=== PATIENT | male | born 1995 | race Caucasian/White ===

== ENCOUNTER 2018-08-17 13:40 | Inpatient (IN) | payer OTHER ==
[2018-08-17 16:50] VITALS: BMI 27.1
--- NOTE | 2018-08-17 18:07 | HP ---
COWS - Scale Resting Pulse: 1= [place] 81-100 Sweatin=Flushed/Facial Moisture Restless Observation: 1= Difficult to Sit Still Pupil Size: 0= Normal to Room Light Bone or Joint Aches: 4=Acute Joint/Muscle Pain Runny Nose/ Eye Tearin= Runny Nose/Eyes GI Upset > 30mins: 2= Nausea/Diarrhea (diarrhea x 3) Tremor Observation: 2= Slight Tremor Visible Yawning Observation: 1= 1-2x During Session Anxiety or Irritability: 2=Irritable/Anxious Goose Flesh Skin: 0=Smooth Skin COWS Score: 17 CIWA Score Nausea/Vomitin Muscle Tremors: 3 Anxiety: 3 Agitation: 0-Normal Activity Paroxysmal Sweats: 2 Orientation: 0-Oriented Tacttile Disturbances: 1-Very Mild Itch/Numbness Auditory Disturbances: 0-None Visual Disturbances: 0-None Headache: 2-Mild CIWA-Ar Total Score: 14 - Admission Criteria OASAS Guidelines: Admission for Medically Managed Detox: Requires at least one of the followin. CIWA greater than 12 2. Seizures within the past 24 hours 3. Delirium tremens within the past 24 hours 4. Hallucinations within the past 24 hours 5. Acute intervention needed for co occurring medical disorder 6. Acute intervention needed for co occurring psychiatric disorder 7. Severe withdrawal that cannot be handled at a lower level of care (continued vomiting, continued diarrhea, abnormal vital signs) requiring intravenous medication and/or fluids 8. Admission [facility] Chief Complaint: Alcohol withdrawal symptoms Allergies/Adverse Reactions: Allergies Allergy/AdvReac Type Severity Reaction Status Date / Time risperidone [From Risperdal] Allergy Verified 08/17/18 18:01 Ris Allergy Severe Difficulty Uncoded 08/17/18 18:01 Breathing History of Present Illness: 23 years old male with 9 years of alcohol dependence is seeking admission to detox. Patient has been in previous at [facility] and this is his first detox at [facility]. He has medical history of Hypertension, Asthma, Depression and Anxiety. He denies suicide attempt and suicidal ideation at this time. Patient is on methadone 120mg with [facility]. Last day medicated was today. Dose is to be confirmed by the nurse. Exam Limitations: No Limitations - Ebola screening Have you traveled outside of the country in the last 21 days: No (N) Have you had contact with anyone from an Ebola affected area: No Have you been sick,other than usual withdrawal symptoms: No Do you have a fever: No - Review of Systems Constitutional: Chills, Loss of Appetite, Malaise, Changes in sleep EENT: reports: No Symptoms Reported Respiratory: reports: No Symptoms reported Cardiac: reports: No Symptoms Reported GI: reports: Diarrhea (x 3), Nausea, Poor Appetite, Poor Fluid Intake, Abdominal cramping : reports: No Symptoms Reported Musculoskeletal: reports: Back Pain, Joint Pain, Muscle Pain Integumentary: reports: Dryness, Flushing Neuro: reports: Tremors Endocrine: reports: No Symptoms Reported Hematology: reports: No Symptoms Reported Psychiatric: reports: No Sypmtoms Reported, Anxious, Depressed Other Systems: Reviewed and Negative Patient History - Patient Medical History Hx Anemia: No Hx Asthma: Yes (Albuterol) Hx Chronic Obstructive Pulmonary Disease (COPD): No Hx Cancer: No Hx Cardiac Disorders: No Hx Congestive Heart Failure: No Hx Hypertension: Yes (Vasotec) Hx Hypercholesterolemia: No Hx Pacemaker: No HX Cerebrovascular Accident: No Hx Seizures: No Hx Diabetes: No Hx Gastrointestinal Disorders: No Hx Liver Disease: No Hx Genitourinary Disorders: No Hx Sexually Transmitted Disorders: No Hx Renal Disease (ESRD): No Hx Thyroid Disease: No Hx Human Immunodeficiency Virus (HIV): No (Negative 2017) Hx Hepatitis C: No Hx Depression: Yes (Paxil, Seroquel) Hx Suicide Attempt: No (Denies suicidal ideation at this time) Hx Bipolar Disorder: Yes (Seroquel) Hx Schizophrenia: No Other Medical History: Anxiety - Not on medication - Patient Surgical History Past Surgical History: No - PPD History Previous Implant?: Yes Documented Results: Negative w/proof Implanted On Prior R Admission?: No PPD to be Administered?: Yes - Reproductive History Patient is a Female of Child Bearing Age (11 -55 yrs old): No (MALE) - Smoking Cessation Smoking history: Current every day smoker Have you smoked in the past 12 months: No Aproximately how many cigarettes per day: 10 Hx Chewing Tobacco Use: No Initiated information on smoking cessation: Yes 'Breaking Loose' booklet given: 08/17/18 - Substance & Tx. History Hx Alcohol Use: Yes Hx Substance Use: Yes Substance Use Type: Alcohol, Cocaine, Marijuana Hx Substance Use Treatment: Yes ([facility]) - Substances Abused Marijuana/Hashish Route: Smoking Frequency: Daily Amount used: $30 Age of first use: 14 Date of Last Use: 08/17/18 Cocaine Route: Injection Frequency: Daily Amount used: $100 Age of first use: 18 Date of Last Use: 08/16/18 Alcohol Route: Oral Frequency: Daily Amount used: FIREBALL - 1 LITER; BARCARDI - 2 BOTTLES Age of first use: 16 Date of Last Use: 08/16/18 Family Disease History - Family Disease History Family History: Denies Admission Physical Exam [facility] - Vital Signs Vital Signs: Vital Signs - 24 hr 08/17/18 16:43 Temperature 99.1 F Pulse Rate 84 Respiratory 18 Rate Blood Pressure 136/76 - Physical General Appearance: Yes: Moderate Distress HEENTM: Yes: EOMI, Normal ENT Inspection, Normal Voice, CECI Respiratory: Yes: Lungs Clear, Normal Breath Sounds, No Respiratory Distress Neck: Yes: Supple Breast: Yes: Breast Exam Deferred Cardiology: Yes: Regular Rhythm, Regular Rate Abdominal: Yes: Normal Bowel Sounds, Soft Genitourinary: Yes: Within Normal Limits Back: Yes: Normal Inspection Musculoskeletal: Yes: Back pain, Joint Stiffness, Muscle Pain Extremities: Yes: Tremors Neurological: Yes: creative coordinator II-XII NML intact, Alert Integumentary: Yes: Warm Lymphatic: Yes: Within Normal Limits - Diagnostic (1) Alcohol dependence with uncomplicated withdrawal Current Visit: Yes Status: Chronic (2) Hypertension Current Visit: Yes Status: Chronic Qualifiers: Hypertension type: essential hypertension Qualified Code(s): I10 - Essential (primary) hypertension (3) Asthma Current Visit: Yes Status: Chronic Qualifiers: Asthma severity: mild Asthma persistence: intermittent (4) Anxiety Current Visit: Yes Status: Chronic (5) Depression Current Visit: Yes Status: Chronic Qualifiers: Depression Type: unspecified Qualified Code(s): F32.9 - Major depressive disorder, single episode, unspecified Cleared for Admission S - Detox or Rehab [facility] Level of Care: Medically Managed Detox Regimen/Protocol: Valium [facility] Breath Alcohol Content Breath Alcohol Content: 0.093 Urine Drug Screen - Results Drug Screen Negative: No Urine Drug Screen Results: THC-Marijuana, KAJAL-Cocaine, MET-Methamphetamine, BZO- Benzodiazepines, MTD-Methadone
[2018-08-17] MEDS ORDERED: MAG HYDROX/AL HYDROX/SIMETH 30 ML UNIT-DOSE CUP PO PRN (18:20)
[2018-08-17] MEDS ORDERED: diazePAM 5 MG TABLET PO PRN (18:20)
[2018-08-17] MEDS ORDERED: NICOTINE POLACRILEX 2 MG GUM BC PRN (18:20)
[2018-08-17] MEDS ORDERED: MAGNESIUM HYDROX 2400MG/30ML ORAL SUSPENSION 30 ML CUP PO PRN (18:20)
[2018-08-17] MEDS ORDERED: diazePAM 5 MG TABLET PO ONE (18:20)
[2018-08-17] MEDS ORDERED: MENTHOL/PHENOL 1 EACH UD MM PRN (18:20)
[2018-08-17] MEDS ORDERED: ACETAMINOPHEN 325 MG TABLET (FP) PO PRN (18:20)
[2018-08-17] MEDS ORDERED: P-EPHED 60MG/TRIPROLIDI 2.5MG TABLET PO PRN (18:20)
[2018-08-17] MEDS ORDERED: MAGNESIUM CITRATE 300 ML BOTTLE PO PRN (18:20)
[2018-08-17] MEDS ORDERED: guaiFENesin/D-METHORPHAN HB 10 ML UNIT-DOSE CUPS PO PRN (18:20)
[2018-08-17] MEDS ORDERED: LOPERAMIDE HCL 2 MG CAPSULE PO PRN (18:20)
[2018-08-17] MEDS ORDERED: MELATONIN 5 MG TABLETS PO PRN (22:00)
[2018-08-17] MEDS: THIAMINE HCL 100 MG TABLET (FP) PO SCH (22:19)
[2018-08-17] MEDS: diazePAM 5 MG TABLET PO SCH (22:19)
[2018-08-18] MEDS: diazePAM 5 MG TABLET PO SCH ×3 (05:26→22:12)
[2018-08-18] MEDS: IBUPROFEN 400 MG TABLET (FP) PO PRN ×2 (05:26→22:13)
[2018-08-18] MEDS: PRENATAL VITAMINS W/ FOLIC ACID TABLET (FP) PO SCH (10:02)
[2018-08-18] MEDS: NICOTINE 14 MG/24 HOURS TOPICAL PATCH TD SCH (10:02)
[2018-08-18 11:00] LABS: ALBUMIN 3.4 g/dl (3.4-5.0); ALK PHOS 130 U/L (45-117); ANION GAP 8 MMOL/L (8-16); BILIRUBIN,TOTAL 0.2 mg/dL (0.2-1); BLOOD UREA NITROGEN 15 mg/dL (7-18); CALCIUM 8.5 mg/dL (8.5-10.1); CHLORIDE 105 mmol/L (98-107); CO2 26 mmol/L (21-32); CREATININE 0.6 mg/dL (0.55-1.3); GLUCOSE,RANDOM 100 mg/dL (74-106); POTASSIUM 4.3 mmol/L (3.5-5.1); SGOT/AST 51 U/L (15-37); SGPT/ALT 124 U/L (13-61); SODIUM 139 mmol/L (136-145); TOT PROT 7.4 g/dl (6.4-8.2)
[2018-08-18 11:06] LABS: HEMATOCRIT 38.2 % (35.4-49); HEMOGLOBIN 12.1 GM/dL (11.7-16.9); MCH 26.4 pg (25.7-33.7); MCHC 31.7 g/dl (32.0-35.9); MEAN CELL VOLUME 83.1 fl (80-96); MEAN PLT VOLUME 7.8 fl (7.5-11.1); PLATELET COUNT 409 K/MM3 (134-434); RDW 15.6 % (11.9-15.9); WHITE BLOOD COUNT 10.8 K/mm3 (4.0-10.0)
--- NOTE | 2018-08-18 11:45 | PN ---
[facility] CIWA - CIWA Score Nausea/Vomitin Muscle Tremors: 2 Anxiety: 2 Agitation: 2 Paroxysmal Sweats: 3 Orientation: 0-Oriented Tacttile Disturbances: 2-Mild Itch/Numbness/Burn Auditory Disturbances: 0-None Visual Disturbances: 0-None Headache: 0-None Present CIWA-Ar Total Score: 13 S COWS - Scale Resting Pulse: 0= [place] 80 or Below Sweatin=Flushed/Facial Moisture Restless Observation: 1= Difficult to Sit Still Pupil Size: 1= Pupils >than Normal Bone or Joint Aches: 2= Severe Diffuse Aches Runny Nose/ Eye Tearin= Nasal Congestion GI Upset > 30mins: 2= Nausea/Diarrhea Tremor Observation of Outstretched Hands: 1= Tremor [place], Not Seen Yawning Observation: 0= None Anxiety or Irritability: 1=Feels Anxious/Irritable Goose Flesh Skin: 0=Smooth Skin COWS Score: 11 S Progress Note (SOAP) Subjective: interupted sleep, sweats, chills, rt arm pains Objective: 08/18/18 11:43 Vital Signs Temperature 97.9 F 08/18/18 09:25 Pulse Rate 69 08/18/18 09:25 Respiratory Rate 16 08/18/18 09:25 Blood Pressure 131/66 08/18/18 09:25 O2 Sat by Pulse Oximetry (%) Laboratory Tests 08/18/18 08/18/18 08/18/18 07:50 07:50 07:50 WBC 10.8 H RBC 4.60 Hgb 12.1 Hct 38.2 MCV 83.1 MCH 26.4 MCHC 31.7 L RDW 15.6 Plt Count 409 MPV 7.8 Sodium 139 Potassium 4.3 Chloride 105 Carbon Dioxide 26 Anion Gap 8 BUN 15 Creatinine 0.6 Creat Clearance w eGFR > 60 Random Glucose 100 Calcium 8.5 Total Bilirubin 0.2 AST 51 H ALT 124 H Alkaline Phosphatase 130 H Total Protein 7.4 Albumin 3.4 HIV 1&2 Antibody Screen Negative HIV P24 Antigen Negative pt aox3 in nad ambulating Assessment: 08/18/18 11:44 withdrawal sx's otp on methadone elevated alt Plan: cont. detox 'increase fluids motrin prn d/c tylenol repeat sgot/sgpt inr
[2018-08-18] MEDS: THIAMINE HCL 100 MG TABLET (FP) PO SCH (22:12)
[2018-08-19 05:58] VITALS: BP 133/72
[2018-08-19 09:33] VITALS: PULSE 67; TEMP 98.5
[2018-08-19] MEDS ORDERED: METHADONE HCL 40 MG DISPERSABLE TABLET PO ONE (09:50)
[2018-08-19] MEDS ORDERED: diazePAM 5 MG TABLET PO SCH (10:00)
[2018-08-19] MEDS: NICOTINE 14 MG/24 HOURS TOPICAL PATCH TD SCH (10:03)
[2018-08-19] MEDS: PRENATAL VITAMINS W/ FOLIC ACID TABLET (FP) PO SCH (10:03)
[2018-08-19 10:27] LABS: SGOT/AST 46 U/L (15-37); SGPT/ALT 104 U/L (13-61)
[2018-08-19] MEDS ORDERED: PERMETHRIN 5% TOPICAL CREAM 60 GM TUBE TP ONE (11:06)
--- NOTE | 2018-08-19 11:09 | PN ---
S Progress Note Note: pt was found in pt room J,G who was dx with head lice; and was wearing pt hat and touched his clothes, pt was told that now he will need to be treated and instructions were given to pt. pt in agreement.
--- NOTE | 2018-08-19 11:13 | PN ---
[facility] CIWA - CIWA Score Nausea/Vomitin-No Nausea/No Vomiting Muscle Tremors: 3 Anxiety: 3 Agitation: 3 Paroxysmal Sweats: 3 Orientation: 0-Oriented Tacttile Disturbances: 0-None Auditory Disturbances: 0-None Visual Disturbances: 0-None Headache: 0-None Present CIWA-Ar Total Score: 12 BHS COWS - Scale Resting Pulse: 0= [place] 80 or Below Sweatin= Chills/Flushing Restless Observation: 1= Difficult to Sit Still Pupil Size: 0= Normal to Room Light Bone or Joint Aches: 2= Severe Diffuse Aches Runny Nose/ Eye Tearin= Runny Nose/Eyes GI Upset > 30mins: 0= None Tremor Observation of Outstretched Hands: 1= Tremor [place], Not Seen Yawning Observation: 1= 1-2x During Session Anxiety or Irritability: 1=Feels Anxious/Irritable Goose Flesh Skin: 0=Smooth Skin COWS Score: 9 [facility] Progress Note (SOAP) Subjective: sweats shakes Objective: 08/19/18 12:35 Vital Signs Temperature 98.5 F 08/19/18 09:32 Pulse Rate 67 08/19/18 09:32 Respiratory Rate 20 08/19/18 09:32 Blood Pressure 133/72 08/19/18 09:32 O2 Sat by Pulse Oximetry (%) Laboratory Tests 08/18/18 08/18/18 08/18/18 07:50 07:50 07:50 WBC 10.8 H RBC 4.60 Hgb 12.1 Hct 38.2 MCV 83.1 MCH 26.4 MCHC 31.7 L RDW 15.6 Plt Count 409 MPV 7.8 PT with INR INR Sodium 139 Potassium 4.3 Chloride 105 Carbon Dioxide 26 Anion Gap 8 BUN 15 Creatinine 0.6 Creat Clearance w eGFR > 60 Random Glucose 100 Calcium 8.5 Total Bilirubin 0.2 AST 51 H ALT 124 H Alkaline Phosphatase 130 H Total Protein 7.4 Albumin 3.4 RPR Titer Nonreactive HIV 1&2 Antibody Screen HIV P24 Antigen 08/18/18 08/19/18 08/19/18 07:50 07:10 07:10 WBC RBC Hgb Hct MCV MCH MCHC RDW Plt Count MPV PT with INR 11.80 INR 1.00 Sodium Potassium Chloride Carbon Dioxide Anion Gap BUN Creatinine Creat Clearance w eGFR Random Glucose Calcium Total Bilirubin AST 46 H ALT 104 H Alkaline Phosphatase Total Protein Albumin RPR Titer HIV 1&2 Antibody Screen Negative HIV P24 Antigen Negative aaox3 ambulating no acute distress Assessment: 08/19/18 12:36 withdrawal sx Plan: continue detox increase fluids
[2018-08-19 11:35] LABS: PROTHROMBIN TIME (PATIENT) 11.8 SEC (9.7-13.0)
--- NOTE | 2018-08-19 12:48 | PN ---
S Progress Note Note: pt was found in the room of the patient with positive head lice, trying on the cloths and head cap. pt was told to step out of the room and leave the clothes and head cap behind. pt was told that he will need to be treated but pt decided to leave and not stay for any treatment and signed out AMA.
--- NOTE | 2018-08-19 12:48 | DS ---
[facility] Detox Discharge Summary Admission Date: 08/17/18 Discharge Date: 08/19/18 - History Present History: Alcohol Dependence - Physical Exam Results Vital Signs: Vital Signs Temperature 98.5 F 08/19/18 09:32 Pulse Rate 67 08/19/18 09:32 Respiratory Rate 20 08/19/18 09:32 Blood Pressure 133/72 08/19/18 09:32 O2 Sat by Pulse Oximetry (%) - Treatment Hospital Course: Detox Protocol Followed, Detoxed Safely, Responded well, Discharged Condition Good, Rehab Referral Accepted - Medication Discharge Medications: Ambulatory Orders Paroxetine HCl [Paxil -] 40 mg PO DAILY 08/17/18 Quetiapine Fumarate [Seroquel -] 300 mg PO HS 08/17/18 - Diagnosis (1) Screening for head lice Status: Acute (2) Alcohol dependence with uncomplicated withdrawal Status: Chronic (3) Anxiety Status: Chronic (4) Asthma Status: Chronic Qualifiers: Asthma severity: mild Asthma persistence: intermittent (5) Depression Status: Chronic Qualifiers: Depression Type: unspecified Qualified Code(s): F32.9 - Major depressive disorder, single episode, unspecified (6) Hypertension Status: Chronic Qualifiers: Hypertension type: essential hypertension Qualified Code(s): I10 - Essential (primary) hypertension - AMA Did Patient Leave Against Medical Advice: Yes (going home)
[2018-08-20] MEDS ORDERED: METHADONE HCL 40 MG DISPERSABLE TABLET PO SCH (06:00)
[2018-08-21] MEDS ORDERED: diazePAM 5 MG TABLET PO SCH (10:00)
== END 2018-08-19 11:24 | disposition left against medical advice (07) | DRG 770 ==
LOC: YASAS 13:40 → Y6N 19:21
PROC: HZ2ZZZZ Detoxification Services for Substance Abuse Treatment (ICD-10-PCS; principal; 2018-08-17)
DX: F10.230 Alcohol dependence with withdrawal, uncomplicated (principal); F17.210 Nicotine dependence, cigarettes, uncomplicated; F41.9 Anxiety disorder, unspecified; F32.9 Major depressive disorder, single episode, unspecified; I10 Essential (primary) hypertension; J45.20 Mild intermittent asthma, uncomplicated; R74.0 Nonspecific elevation of levels of transaminase and lactic acid dehydrogenase [LDH]; Z11.9 Encounter for screening for infectious and parasitic diseases, unspecified; Z20.9 Contact with and (suspected) exposure to unspecified communicable disease
CPT/HCPCS: 36415; 80053; 84450; 84460; 85027; 85610; 86593; 87389

== ENCOUNTER 2018-09-25 17:16 | Inpatient (IN) | payer OTHER ==
[2018-09-25 21:48] VITALS: BMI 27.6
--- NOTE | 2018-09-26 00:28 | HP ---
CIWA Score Nausea/Vomitin-Mild Nausea/No Vomiting Muscle Tremors: 4-Moderate,w/Arms Extend Anxiety: 4-Mod. Anxious/Guarded Agitation: 3 Paroxysmal Sweats: 1-Minimal Palms Moist Orientation: 1-Uncertain about Date Tacttile Disturbances: 1-Very Mild Itch/Numbness Auditory Disturbances: 0-None Visual Disturbances: 0-None Headache: 0-None Present CIWA-Ar Total Score: 15 - Admission Criteria OASAS Guidelines: Admission for Medically Managed Detox: Requires at least one of the followin. CIWA greater than 12 2. Seizures within the past 24 hours 3. Delirium tremens within the past 24 hours 4. Hallucinations within the past 24 hours 5. Acute intervention needed for co occurring medical disorder 6. Acute intervention needed for co occurring psychiatric disorder 7. Severe withdrawal that cannot be handled at a lower level of care (continued vomiting, continued diarrhea, abnormal vital signs) requiring intravenous medication and/or fluids 8. Admission [facility] Chief Complaint: Alcohol withdrawal symptom Allergies/Adverse Reactions: Allergies Allergy/AdvReac Type Severity Reaction Status Date / Time risperidone [From Risperdal] Allergy Severe Difficulty Verified 08/17/18 18:27 Breathing History of Present Illness: 23 years old male with 8 years of alcohol and poly substance dependence is seeking admission to detox. Patient was in detox 08/17/2019 - 08/17/2018 and left AMA. Patient reports that he will not sign out AMA this admission. He has medical history of depression, asthma, hypertension and anxiety. He denies suicidal ideation at this time. He is on Methadone 130mg at [facility]. Dose is to yet be verified by the nurse. Exam Limitations: No Limitations - Ebola screening Have you traveled outside of the country in the last 21 days: No (N) Have you had contact with anyone from an Ebola affected area: No Have you been sick,other than usual withdrawal symptoms: No Do you have a fever: No - Review of Systems Constitutional: Chills, Loss of Appetite, Malaise, Night Sweats, Changes in sleep EENT: reports: Nose Congestion Respiratory: reports: No Symptoms reported Cardiac: reports: No Symptoms Reported GI: reports: Constipated, Nausea, Poor Appetite, Poor Fluid Intake, Abdominal cramping : reports: No Symptoms Reported Musculoskeletal: reports: Back Pain, Neck Pain Integumentary: reports: Dryness, Flushing Neuro: reports: Tremors Endocrine: reports: No Symptoms Reported Hematology: reports: No Symptoms Reported Psychiatric: reports: Anxious, Depressed Other Systems: Reviewed and Negative Patient History - Patient Medical History Hx Anemia: No Hx Asthma: Yes (Albuterol IH) Hx Chronic Obstructive Pulmonary Disease (COPD): No Hx Cancer: No Hx Cardiac Disorders: No Hx Congestive Heart Failure: No Hx Hypertension: Yes (Vasotec) Hx Hypercholesterolemia: No Hx Pacemaker: No HX Cerebrovascular Accident: No Hx Seizures: No Hx Diabetes: No Hx Gastrointestinal Disorders: No Hx Liver Disease: No Hx Genitourinary Disorders: No Hx Sexually Transmitted Disorders: No Hx Renal Disease (ESRD): No Hx Thyroid Disease: No Hx Human Immunodeficiency Virus (HIV): No (Negative 2018) Hx Hepatitis C: No Hx Depression: Yes (Paxil) Hx Suicide Attempt: No Hx Bipolar Disorder: Yes (Seroquel) Hx Schizophrenia: No - Patient Surgical History Past Surgical History: No Hx Neurologic Surgery: No Hx Cataract Extraction: No Hx Cardiac Surgery: No Hx Lung Surgery: No Hx Breast Surgery: No Hx Breast Biopsy: No Hx Abdominal Surgery: No Hx Appendectomy: No Hx Cholecystectomy: No Hx Genitourinary Surgery: No Hx Section: No Hx Orthopedic Surgery: No Anesthesia Reaction: No - PPD History Previous Implant?: Yes Documented Results: Negative w/o proof Date: 08/19/18 PPD to be Administered?: Yes - Reproductive History Patient is a Female of Child Bearing Age (11 -55 yrs old): No (Male) - Smoking Cessation Smoking history: Current every day smoker Have you smoked in the past 12 months: Yes Aproximately how many cigarettes per day: 10 Hx Chewing Tobacco Use: No Initiated information on smoking cessation: Yes 'Breaking Loose' booklet given: 09/26/18 - Substance & Tx. History Hx Alcohol Use: Yes Hx Substance Use: Yes Substance Use Type: Alcohol, Cocaine, Marijuana, Opiates Hx Substance Use Treatment: Yes ([facility]) - Substances Abused Alcohol Route: Oral Frequency: Daily Amount used: Liquor 1 pint Age of first use: 15 Date of Last Use: 09/25/18 Alprazolam (Xanax) Route: Oral Frequency: Daily Amount used: 2mg Age of first use: 15 Date of Last Use: 09/25/18 Cocaine Route: Injection Frequency: Daily Amount used: $200 Age of first use: 17 Date of Last Use: 09/25/18 Family Disease History - Family Disease History Family Disease History: Diabetes: Grandparent Admission Physical Exam [facility] - Vital Signs Vital Signs: Vital Signs - 24 hr 09/25/18 21:41 Temperature 98.5 F Pulse Rate 87 Respiratory 18 Rate Blood Pressure 120/67 - Physical General Appearance: Yes: Moderate Distress, Tremorous, Irritable, Sweating, Anxious HEENTM: Yes: EOMI, Normal ENT Inspection, Normal Voice, CECI Respiratory: Yes: Lungs Clear, Normal Breath Sounds, No Respiratory Distress Neck: Yes: Supple Breast: Yes: Breast Exam Deferred Cardiology: Yes: Regular Rhythm, Regular Rate Abdominal: Yes: Normal Bowel Sounds, Soft Genitourinary: Yes: Within Normal Limits Back: Yes: Normal Inspection Extremities: Yes: Tremors Neurological: Yes: Alert, Normal Mood/Affect Integumentary: Yes: Warm Lymphatic: Yes: Within Normal Limits - Diagnostic (1) Methadone maintenance therapy patient Current Visit: Yes Status: Chronic (2) Alcohol dependence with uncomplicated withdrawal Current Visit: Yes Status: Chronic (3) Anxiety Current Visit: No Status: Chronic (4) Asthma Current Visit: Yes Status: Chronic Qualifiers: Asthma severity: mild Asthma persistence: intermittent (5) Depression Current Visit: Yes Status: Chronic Qualifiers: Depression Type: unspecified Qualified Code(s): F32.9 - Major depressive disorder, single episode, unspecified (6) Hypertension Current Visit: Yes Status: Chronic Qualifiers: Hypertension type: essential hypertension Qualified Code(s): I10 - Essential (primary) hypertension Cleared for Admission [facility] - Detox or Rehab [facility] Level of Care: Medically Managed Detox Regimen/Protocol: Librium [facility] Breath Alcohol Content Breath Alcohol Content: 0 Urine Drug Screen - Results Drug Screen Negative: No Urine Drug Screen Results: THC-Marijuana, KAJAL-Cocaine, AMP-Amphetamines, MET- Methamphetamine, BZO-Benzodiazepines, MTD-Methadone
[2018-09-26] MEDS ORDERED: NICOTINE POLACRILEX 2 MG GUM BC PRN (00:39)
[2018-09-26] MEDS ORDERED: MAGNESIUM CITRATE 300 ML BOTTLE PO PRN (00:39)
[2018-09-26] MEDS ORDERED: MENTHOL/PHENOL 1 EACH UD MM PRN (00:39)
[2018-09-26] MEDS ORDERED: MAG HYDROX/AL HYDROX/SIMETH 30 ML UNIT-DOSE CUP PO PRN (00:39)
[2018-09-26] MEDS ORDERED: LOPERAMIDE HCL 2 MG CAPSULE PO PRN (00:39)
[2018-09-26] MEDS ORDERED: P-EPHED 60MG/TRIPROLIDI 2.5MG TABLET PO PRN (00:39)
[2018-09-26] MEDS ORDERED: guaiFENesin/D-METHORPHAN HB 10 ML UNIT-DOSE CUPS PO PRN (00:39)
[2018-09-26] MEDS ORDERED: chlordiazePOXIDE HCL 25 MG CAPSULE PO ONE (00:39)
[2018-09-26] MEDS ORDERED: chlordiazePOXIDE HCL 25 MG CAPSULE PO PRN (00:39)
[2018-09-26] MEDS ORDERED: ACETAMINOPHEN 325 MG TABLET (FP) PO PRN (00:39)
[2018-09-26] MEDS ORDERED: ALBUTEROL SO4 8 GM HFA INHALER IH PRN (00:41)
--- NOTE | 2018-09-26 00:44 | HP ---
CIWA Score Nausea/Vomitin-Mild Nausea/No Vomiting Muscle Tremors: 4-Moderate,w/Arms Extend Anxiety: 4-Mod. Anxious/Guarded Agitation: 3 Paroxysmal Sweats: 1-Minimal Palms Moist Orientation: 1-Uncertain about Date Tacttile Disturbances: 1-Very Mild Itch/Numbness Auditory Disturbances: 0-None Visual Disturbances: 0-None Headache: 0-None Present CIWA-Ar Total Score: 15 - Admission Criteria OASAS Guidelines: Admission for Medically Managed Detox: Requires at least one of the followin. CIWA greater than 12 2. Seizures within the past 24 hours 3. Delirium tremens within the past 24 hours 4. Hallucinations within the past 24 hours 5. Acute intervention needed for co occurring medical disorder 6. Acute intervention needed for co occurring psychiatric disorder 7. Severe withdrawal that cannot be handled at a lower level of care (continued vomiting, continued diarrhea, abnormal vital signs) requiring intravenous medication and/or fluids 8. Admission ROS S - HPI Allergies/Adverse Reactions: Allergies Allergy/AdvReac Type Severity Reaction Status Date / Time risperidone [From Risperdal] Allergy Severe Difficulty Verified 08/17/18 18:27 Breathing - Ebola screening Have you traveled outside of the country in the last 21 days: No (N) Have you had contact with anyone from an Ebola affected area: No Have you been sick,other than usual withdrawal symptoms: No Do you have a fever: No Patient History - Patient Medical History Hx Anemia: No Hx Asthma: Yes (Albuterol IH) Hx Chronic Obstructive Pulmonary Disease (COPD): No Hx Cancer: No Hx Cardiac Disorders: No Hx Congestive Heart Failure: No Hx Hypertension: Yes (Vasotec) Hx Hypercholesterolemia: No Hx Pacemaker: No HX Cerebrovascular Accident: No Hx Seizures: No Hx Diabetes: No Hx Gastrointestinal Disorders: No Hx Liver Disease: No Hx Genitourinary Disorders: No Hx Sexually Transmitted Disorders: No Hx Renal Disease (ESRD): No Hx Thyroid Disease: No Hx Human Immunodeficiency Virus (HIV): No (Negative 2018) Hx Hepatitis C: No Hx Depression: Yes (Paxil) Hx Suicide Attempt: No Hx Bipolar Disorder: Yes (Seroquel) Hx Schizophrenia: No - Patient Surgical History Past Surgical History: No Hx Neurologic Surgery: No Hx Cataract Extraction: No Hx Cardiac Surgery: No Hx Lung Surgery: No Hx Breast Surgery: No Hx Breast Biopsy: No Hx Abdominal Surgery: No Hx Appendectomy: No Hx Cholecystectomy: No Hx Genitourinary Surgery: No Hx Section: No Hx Orthopedic Surgery: No Anesthesia Reaction: No - PPD History Previous Implant?: Yes Documented Results: Negative w/o proof Date: 08/19/18 - Smoking Cessation Smoking history: Current every day smoker Have you smoked in the past 12 months: Yes Aproximately how many cigarettes per day: 10 Hx Chewing Tobacco Use: No Initiated information on smoking cessation: Yes - Substances Abused Alcohol Route: Oral Frequency: Daily Amount used: Liquor 1 pint Age of first use: 15 Date of Last Use: 09/25/18 Alprazolam (Xanax) Route: Oral Frequency: Daily Amount used: 2mg Age of first use: 15 Date of Last Use: 09/25/18 Cocaine Route: Injection Frequency: Daily Amount used: $200 Age of first use: 17 Date of Last Use: 09/25/18 Family Disease History - Family Disease History Family Disease History: Diabetes: Grandparent Admission Physical Exam S - Vital Signs Vital Signs: Vital Signs - 24 hr 09/25/18 21:41 Temperature 98.5 F Pulse Rate 87 Respiratory 18 Rate Blood Pressure 120/67 - Diagnostic (1) Methadone maintenance therapy patient Current Visit: Yes Status: Chronic (2) Alcohol dependence with uncomplicated withdrawal Current Visit: Yes Status: Chronic (3) Anxiety Current Visit: No Status: Chronic (4) Asthma Current Visit: Yes Status: Chronic Qualifiers: Asthma severity: mild Asthma persistence: intermittent (5) Depression Current Visit: Yes Status: Chronic Qualifiers: Depression Type: unspecified Qualified Code(s): F32.9 - Major depressive disorder, single episode, unspecified (6) Hypertension Current Visit: Yes Status: Chronic Qualifiers: Hypertension type: essential hypertension Qualified Code(s): I10 - Essential (primary) hypertension [facility] Breath Alcohol Content Breath Alcohol Content: 0 Urine Drug Screen - Results Drug Screen Negative: No Urine Drug Screen Results: THC-Marijuana, KAJAL-Cocaine, AMP-Amphetamines, MET- Methamphetamine, BZO-Benzodiazepines, MTD-Methadone
[2018-09-26] MEDS: chlordiazePOXIDE HCL 25 MG CAPSULE PO SCH ×4 (05:42→22:33)
[2018-09-26] MEDS: ENALAPRIL MALEATE 10 MG TABLET (FP) PO SCH (10:29)
[2018-09-26] MEDS: PRENATAL VITAMINS W/ FOLIC ACID TABLET (FP) PO SCH (10:29)
[2018-09-26] MEDS: NICOTINE 14 MG/24 HOURS TOPICAL PATCH TD SCH (10:29)
--- NOTE | 2018-09-26 11:36 | PN ---
[facility] Progress Note Note: Patient admitted early this morning for detox, he is stable in no apparent distress, he however reports chills, bone pain, leg pain possibly which he thinks is from injection site, no track acosta noted. Monitoring ongoing
--- NOTE | 2018-09-26 14:26 | PN ---
[facility] Progress Note Note: Methadone 130mg for maintenance ordered following RN verification.
[2018-09-26] MEDS ORDERED: METHADONE HCL 10 MG TABLET PO SCH (14:30)
--- NOTE | 2018-09-26 14:45 | CONSULT ---
[facility] Psychiatric Consult - Data Date of interview: 09/26/18 Admission source: [facility] Identifying data: Approached at bedside for psychiatric evaluation. Patient declines. Nursing staff is informed.
[2018-09-26] MEDS ORDERED: METHADONE 120 MG, METHADONE 10 MG PO SCH (15:00)
[2018-09-26] MEDS ORDERED: METHADONE HCL 40 MG DISPERSABLE TABLET ONE (15:30)
[2018-09-26] MEDS ORDERED: METHADONE HCL 10 MG TABLET ONE (15:31)
[2018-09-26] MEDS: MAGNESIUM HYDROX 2400MG/30ML ORAL SUSPENSION 30 ML CUP PO PRN (15:36)
[2018-09-26] MEDS: METHADONE 120 MG, METHADONE 10 MG PO SCH (17:30)
[2018-09-26] MEDS: THIAMINE HCL 100 MG TABLET (FP) PO SCH (22:33)
[2018-09-26] MEDS: IBUPROFEN 400 MG TABLET (FP) PO PRN (22:33)
[2018-09-26] MEDS: MELATONIN 5 MG TABLETS PO PRN (22:34)
[2018-09-27] MEDS ORDERED: METHADONE HCL 10 MG TABLET ONE (02:38)
[2018-09-27] MEDS ORDERED: METHADONE HCL 40 MG DISPERSABLE TABLET ONE (02:38)
[2018-09-27] MEDS: METHADONE 120 MG, METHADONE 10 MG PO SCH (05:40)
[2018-09-27] MEDS: chlordiazePOXIDE HCL 25 MG CAPSULE PO SCH ×4 (05:40→22:16)
[2018-09-27] MEDS: PRENATAL VITAMINS W/ FOLIC ACID TABLET (FP) PO SCH (10:27)
[2018-09-27] MEDS: NICOTINE 14 MG/24 HOURS TOPICAL PATCH TD SCH (10:27)
[2018-09-27] MEDS: ENALAPRIL MALEATE 10 MG TABLET (FP) PO SCH (10:27)
[2018-09-27] MEDS ORDERED: hydrOXYzine PAMOATE 50 MG CAPSULE (FP) PO PRN (10:43)
--- NOTE | 2018-09-27 10:43 | PN ---
S CIWA - CIWA Score Nausea/Vomitin-Mild Nausea/No Vomiting Muscle Tremors: 2 Anxiety: 3 Agitation: 3 Paroxysmal Sweats: 2 Orientation: 0-Oriented Tacttile Disturbances: 0-None Auditory Disturbances: 0-None Visual Disturbances: 0-None Headache: 2-Mild CIWA-Ar Total Score: 13 BHS Progress Note (SOAP) Subjective: pt states he is feeling anxious- wants to see MH provider. On methadone MAT. Here for alcohol detox and pt states has been taking a lot of benzo- on librium. O: Vital Signs - 24 hr 09/26/18 09/26/18 09/26/18 13:47 17:33 22:12 Temperature 97.7 F 98.6 F 98.7 F Pulse Rate 79 70 83 Respiratory 18 19 19 Rate Blood Pressure 132/58 L 121/60 131/60 09/27/18 09/27/18 09/27/18 00:30 06:57 09:23 Temperature 97.3 F L 98.6 F Pulse Rate 54 L 67 Respiratory 18 18 16 Rate Blood Pressure 118/56 L 108/60 a/p: continue methadone MAT On librium for alcohol detox, will cover benzo detox as well MH consult for anxiety rx
[2018-09-27] MEDS ORDERED: cloNIDine HCL 0.1 MG TABLET PO PRN (10:44)
[2018-09-27 10:46] LABS: HEMATOCRIT 33.7 % (35.4-49); HEMOGLOBIN 11.1 GM/dL (11.7-16.9); MCH 27.1 pg (25.7-33.7); MCHC 32.9 g/dl (32.0-35.9); MEAN CELL VOLUME 82.4 fl (80-96); PLATELET COUNT 148 K/MM3 (134-434); RBC 4.09 M/mm3 (4.00-5.60); RDW 17.4 % (11.9-15.9); WHITE BLOOD COUNT 2.9 K/mm3 (4.0-10.0)
[2018-09-27] MEDS: MAGNESIUM HYDROX 2400MG/30ML ORAL SUSPENSION 30 ML CUP PO PRN (21:08)
[2018-09-27] MEDS: THIAMINE HCL 100 MG TABLET (FP) PO SCH (22:16)
[2018-09-27] MEDS: MELATONIN 5 MG TABLETS PO PRN (22:17)
[2018-09-28] MEDS ORDERED: METHADONE HCL 40 MG DISPERSABLE TABLET ONE (04:17)
[2018-09-28] MEDS ORDERED: METHADONE HCL 10 MG TABLET ONE (04:17)
[2018-09-28] MEDS: METHADONE 120 MG, METHADONE 10 MG PO SCH (05:35)
[2018-09-28] MEDS: chlordiazePOXIDE 5 MG CAPSULE PO SCH ×4 (05:35→22:18)
--- NOTE | 2018-09-28 08:49 | CONSULT ---
[facility] Psychiatric Consult - Data Date of interview: 09/28/18 Admission source: [facility] Identifying data: This is a 23 years old male, single, childless, unemployed, with no financial support, with history of Bipolar Disorder, psychiatric hospitalization history, with 8 years of alcohol and Cocaine, Opioids, Xanax, Nicotone dependence, is reporting withdrawal symptoms and seeking admission to detox. Currently on MMTP 130mg/day. Substance Abuse History: Smoking history: Current every day smoker. Have you smoked in the past 12 months: Yes. Aproximately how many cigarettes per day: 10. Hx Chewing Tobacco Use: No. Initiated information on smoking cessation: Yes. 'Breaking Loose' booklet given: 09/26/18. - Substance & Tx. History. Hx Alcohol Use: Yes. Hx Substance Use: Yes. Substance Use Type: Alcohol, Cocaine , Marijuana, Opiates. Hx Substance Use Treatment: Yes ([facility] - Substances Abused. Alcohol. Route: Oral. Frequency: Daily. Amount used: Liquor 1 pint. Age of first use: 15. Date of Last Use: 09/25/18. Alprazolam (Xanax) . Route: Oral. Frequency: Daily. Amount used: 2mg. Age of first use: 15. Date of Last Use: 09/25/18. Cocaine. Route: Injection. Frequency: Daily. Amount used: $200. Age of first use: 17. Date of Last Use: 09/25/18 Medical History: HTN, Asthma, MMTP 30MG/DAY Psychiatric History: Patient reports to carry Bipolar Disorder with most recent psychiatric admission on 2014 at [facility]. Reports taking prior to admission: Depakote 250mg po bid. Paxil 40mg poqd. Seroquel 150mg po bid Physical/Sexual Abuse/Trauma History: Denies Additional Comment: Depakote 250mg po bid. Paxil 40mg poqd. Seroquel 150mg po bid Mental Status Exam - Mental Status Exam Alert and Oriented to: Person Cognitive Function: Fair Patient Appearance: Unkempt Mood: Apprehensive Affect: Mood Congruent Patient Behavior: Cooperative Speech Pattern: Delayed Voice Loudness: Mildly Soft/Quiet Thought Process: Circumstantial, Goal Oriented Thought Disorder: Being Controlled Hallucinations: Denies Suicidal Ideation: Denies Homicidal Ideation: Denies Insight/Judgement: Fair Sleep: Difficulty falling asleep Appetite: Weight gain Muscle strength/Tone: Normal Gait/Station: Shuffling Additional Comments: Depakote 250mg po bid. Paxil 40mg poqd. Seroquel 150mg po bid Psychiatric Findings - Problem List ([place] 1, 2,3) (1) Bipolar disorder Current Visit: Yes Status: Acute (2) Opioid dependence Current Visit: Yes Status: Acute (3) Nicotine dependence Current Visit: Yes Status: Acute (4) Cocaine dependence Current Visit: Yes Status: Acute (5) Drug-induced mood disorder Current Visit: Yes Status: Acute (6) Alcohol dependence with uncomplicated withdrawal Current Visit: Yes Status: Chronic (7) Asthma Current Visit: Yes Status: Chronic Qualifiers: Asthma severity: mild Asthma persistence: intermittent (8) Depression Current Visit: Yes Status: Chronic Qualifiers: Depression Type: unspecified Qualified Code(s): F32.9 - Major depressive disorder, single episode, unspecified (9) Hypertension Current Visit: Yes Status: Chronic Qualifiers: Hypertension type: essential hypertension Qualified Code(s): I10 - Essential (primary) hypertension (10) Methadone maintenance therapy patient Current Visit: Yes Status: Chronic (11) Anxiety Current Visit: No Status: Chronic - Initial Treatment Plan Initial Treatment Plan: Depakote 250mg po bid. Paxil 40mg poqd. Seroquel 150mg po bid
[2018-09-28] MEDS: ENALAPRIL MALEATE 10 MG TABLET (FP) PO SCH (10:03)
[2018-09-28] MEDS: NICOTINE 14 MG/24 HOURS TOPICAL PATCH TD SCH (10:03)
[2018-09-28] MEDS: PRENATAL VITAMINS W/ FOLIC ACID TABLET (FP) PO SCH (10:04)
[2018-09-28] MEDS: DIVALPROEX SODIUM 250 MG TABLET E.C. PO SCH ×2 (10:05→22:19)
[2018-09-28] MEDS: QUEtiapine FUMARATE 50 MG TABLET PO SCH ×2 (10:06→22:19)
[2018-09-28] MEDS: PARoxetine HCL 20 MG TABLET (FP) PO SCH (10:06)
[2018-09-28] MEDS: IBUPROFEN 400 MG TABLET (FP) PO PRN (10:12)
--- NOTE | 2018-09-28 12:28 | PN ---
[facility] CIWA - CIWA Score Nausea/Vomitin-No Nausea/No Vomiting Muscle Tremors: 3 Anxiety: 3 Agitation: 3 Paroxysmal Sweats: No Perspiration Orientation: 0-Oriented Tacttile Disturbances: 2-Mild Itch/Numbness/Burn Auditory Disturbances: 0-None Visual Disturbances: 0-None Headache: 0-None Present CIWA-Ar Total Score: 11 S Progress Note (SOAP) Subjective: Anxious, Interrupted Sleep, Tremors, Body Aches. Objective: PATIENT A & O X 3, OBSERVED AMBULATING ON UNIT. IN NO ACUTE DISTRESS. PATIENT AFEBRILE. Vital Signs Temperature 97.5 F L 09/28/18 13:16 Pulse Rate 70 09/28/18 13:16 Respiratory Rate 18 09/28/18 13:16 Blood Pressure 112/54 L 09/28/18 13:16 O2 Sat by Pulse Oximetry (%) Laboratory Tests 09/27/18 09/27/18 09/28/18 07:50 07:50 12:40 WBC 2.9 L RBC 4.09 Hgb 11.1 L Hct 33.7 L MCV 82.4 MCH 27.1 MCHC 32.9 RDW 17.4 H Plt Count 148 D MPV 9.0 D Sodium 141 Potassium 4.4 Chloride 109 H Carbon Dioxide 29 Anion Gap 3 L BUN 14 Creatinine 0.4 L Creat Clearance w eGFR > 60 Random Glucose 81 Calcium 7.8 L Total Bilirubin 0.2 AST 74 H ALT 101 H Alkaline Phosphatase 80 Total Protein 5.8 L Albumin 2.7 L RPR Titer Nonreactive LABS NOTED. Assessment: 09/28/18 12:28 WITHDRAWAL SYMPTOMS. ANEMIA. LEUKOPENIA. 09/28/18 12:52 Plan: CONTINUE DETOX. PATIENT CURRENTLY RECEIVING DAILY MVI CONTAINING B VITAMINS AND IRON WHILE ADMITTED FOR DETOX. PATIENT REPORTS THAT HE WAS ADMITTED AT [facility] ([place], [place] ) FOR AN "INFECTION OF HIS NECK AND RIGHT COLLARBONE" PRIOR TO ADMISSION TO DETOX UNIT AT [facility]. PATIENT UNABLE TO GIVE ANY MORE SPECIFIC INFORMATION ABOUT TYPE OF INFECTION BEYOND THAT NOTED ABOVE. ACCORDING TO PATIENT, HE WAS ADMINISTERED IV ANTIBIOTIC WHILE ADMITTED AT [facility] AND THAT HE WAS THEN DISCHARGED FROM HOSPITAL (ON 09/23/2018) WITH PRESCRIPTION FROM [facility]. PATIENT PICKED UP ANTIBIOTIC, BUT REPORTS THAT HE LOST THE MEDICATION SHORTLY AFTER PICKING IT UP. ACCORDING TO PHARMACIST AT [facility] ([place], [place]; [phone]), PATIENT PICKED UP PRESCRIPTION FOR BACTRIM DS, 2 TABLETS PO TO BE TAKEN Q 8 HOURS X 16 DAYS. HOWEVER, BASED UPON PATIENT'S REPORT, HE HAS NOT TAKEN THE MEDICATION FOR THE LAST 4-5 DAYS. NO SWELLING, ERYTHEMA, OR UNUSUAL DISCHARGE NOTED ON NECK OR AT EITHER CLAVICLE , INCLUDING RIGHT CLAVICLE. NO PAIN ELICITED UPON PALPATION OR EITHER CLAVICLE. PATIENT AFEBRILE SINCE TIME OF ADMISSION TO DETOX UNIT. NO ABNORMALITY NOTED ON ADMISSION CBC TO SUGGEST ANY INDICATION OF ACTIVE INFECTION. PATIENT ADVISED TO FOLLOW-UP WITH MEDICAL PROVIDER AT [facility] FOR FOLLOW-UP EVALUATION / CARE SOON POSSIBLE AFTER DISCHARGE FROM DETOX UNIT. PATIENT VERBALIZED UNDERSTANDING OF RECOMMENDATION.
[2018-09-28 13:00] LABS: CREATININE 0.4 mg/dL (0.55-1.3)
[2018-09-28 13:01] LABS: ALBUMIN 2.7 g/dl (3.4-5.0); CO2 29 mmol/L (21-32)
[2018-09-28 13:03] LABS: ALK PHOS 80 U/L (45-117); ANION GAP 3 MMOL/L (8-16); BILIRUBIN,TOTAL 0.2 mg/dL (0.2-1); BLOOD UREA NITROGEN 14 mg/dL (7-18); CALCIUM 7.8 mg/dL (8.5-10.1); CHLORIDE 109 mmol/L (98-107); GLUCOSE,RANDOM 81 mg/dL (74-106); POTASSIUM 4.4 mmol/L (3.5-5.1); SGOT/AST 74 U/L (15-37); SGPT/ALT 101 U/L (13-61); SODIUM 141 mmol/L (136-145); TOT PROT 5.8 g/dl (6.4-8.2)
[2018-09-28] MEDS: THIAMINE HCL 100 MG TABLET (FP) PO SCH (22:18)
[2018-09-29] MEDS ORDERED: METHADONE HCL 10 MG TABLET ONE ×2 (06:02→08:14)
[2018-09-29] MEDS ORDERED: METHADONE HCL 40 MG DISPERSABLE TABLET ONE ×2 (06:02→08:13)
[2018-09-29] MEDS: chlordiazePOXIDE HCL 10 MG CAPSULE PO SCH ×2 (06:19→10:07)
[2018-09-29] MEDS: METHADONE 120 MG, METHADONE 10 MG PO SCH (08:15)
--- NOTE | 2018-09-29 09:13 | DS ---
[facility] Detox Discharge Summary Admission Date: 09/26/18 Discharge Date: 09/29/18 - History Present History: Alcohol Dependence, Cannabis Dependence, Opioid Dependence, MMTP - Physical Exam Results Vital Signs: Vital Signs Temperature 98.1 F 09/29/18 06:00 Pulse Rate 63 09/29/18 06:00 Respiratory Rate 18 09/29/18 06:00 Blood Pressure 122/66 09/29/18 06:00 O2 Sat by Pulse Oximetry (%) - Treatment Hospital Course: Detox Protocol Followed, Detoxed Safely, Responded well, Discharged Condition Good, Rehab Referral Accepted - Medication Discharge Medications: Ambulatory Orders Quetiapine Fumarate [Seroquel -] 300 mg PO HS 08/17/18 Enalapril Maleate [Vasotec -] 10 mg PO DAILY 09/25/18 Albuterol Sulfate Inhaler - [Ventolin Hfa Inhaler -] 1 - 2 inh PO Q4H PRN #1 inhaler 09/28/18 Divalproex *ER* [Depakote *ER* -] 250 mg PO BID #60 tablet.sa 09/28/18 Paroxetine HCl [Paxil -] 40 mg PO DAILY #30 tablet 09/28/18 Paroxetine HCl [Paxil] 40 mg PO DAILY #30 tablet 09/28/18 - Diagnosis (1) Bipolar disorder Current Visit: Yes Status: Acute (2) Cocaine dependence Current Visit: Yes Status: Chronic Qualifiers: Substance use status: uncomplicated Qualified Code(s): F14.20 - Cocaine dependence, uncomplicated (3) Drug-induced mood disorder Current Visit: Yes Status: Acute (4) Nicotine dependence Current Visit: Yes Status: Acute Qualifiers: Nicotine product type: cigarettes Substance use status: uncomplicated Qualified Code(s): F17.210 - Nicotine dependence, cigarettes, uncomplicated (5) Opioid dependence Current Visit: Yes Status: Chronic Qualifiers: Substance use status: uncomplicated Qualified Code(s): F11.20 - Opioid dependence, uncomplicated (6) Alcohol dependence with uncomplicated withdrawal Current Visit: Yes Status: Chronic (7) Asthma Current Visit: Yes Status: Chronic Qualifiers: Asthma severity: mild Asthma persistence: intermittent (8) Depression Current Visit: Yes Status: Chronic Qualifiers: Depression Type: unspecified Qualified Code(s): F32.9 - Major depressive disorder, single episode, unspecified (9) Hypertension Current Visit: Yes Status: Chronic Qualifiers: Hypertension type: essential hypertension Qualified Code(s): I10 - Essential (primary) hypertension (10) Methadone maintenance therapy patient Current Visit: Yes Status: Chronic (11) Anxiety Current Visit: No Status: Chronic - AMA Did Patient Leave Against Medical Advice: No (pt referred to [facility])
[2018-09-29 09:19] VITALS: BP 116/65; PULSE 70; TEMP 97.7
[2018-09-29] MEDS: QUEtiapine FUMARATE 50 MG TABLET PO SCH (10:06)
[2018-09-29] MEDS: PRENATAL VITAMINS W/ FOLIC ACID TABLET (FP) PO SCH (10:06)
[2018-09-29] MEDS: PARoxetine HCL 20 MG TABLET (FP) PO SCH (10:06)
[2018-09-29] MEDS: DIVALPROEX SODIUM 250 MG TABLET E.C. PO SCH (10:06)
[2018-09-29] MEDS: ENALAPRIL MALEATE 10 MG TABLET (FP) PO SCH (10:06)
[2018-09-29] MEDS: NICOTINE 14 MG/24 HOURS TOPICAL PATCH TD SCH (10:06)
== END 2018-09-29 12:02 | disposition home or self-care (01) | DRG 773 ==
LOC: YASAS 17:16 → Y6N 09-26 01:13
PROVIDERS: ADMIT Neuromusculoskeletal Medicine & OMM; ATTEND Neuromusculoskeletal Medicine & OMM
PROC: HZ2ZZZZ Detoxification Services for Substance Abuse Treatment (ICD-10-PCS; principal; 2018-09-26)
DX: F10.230 Alcohol dependence with withdrawal, uncomplicated (principal); F11.20 Opioid dependence, uncomplicated; F14.20 Cocaine dependence, uncomplicated; F17.210 Nicotine dependence, cigarettes, uncomplicated; F31.9 Bipolar disorder, unspecified; F19.24 Other psychoactive substance dependence with psychoactive substance-induced mood disorder; F41.9 Anxiety disorder, unspecified; I10 Essential (primary) hypertension; J45.909 Unspecified asthma, uncomplicated; D64.9 Anemia, unspecified; D72.819 Decreased white blood cell count, unspecified
CPT/HCPCS: 36415; 80053; 85027; 86593

== ENCOUNTER 2018-10-24 10:29 | Inpatient (IN) | payer OTHER ==
[2018-10-24 10:34] VITALS: BMI 30.5
--- NOTE | 2018-10-24 11:26 | HP ---
"CIWA Score Nausea/Vomitin Muscle Tremors: 4-Moderate,w/Arms Extend Anxiety: 4-Mod. Anxious/Guarded Agitation: 0-Normal Activity Paroxysmal Sweats: 1-Minimal Palms Moist Orientation: 0-Oriented Tacttile Disturbances: 0-None Auditory Disturbances: 1-Very Mild Visual Disturbances: 2-Mild Sensitivity Headache: 2-Mild CIWA-Ar Total Score: 16 - Admission Criteria OASAS Guidelines: Admission for Medically Managed Detox: Requires at least one of the followin. CIWA greater than 12 2. Seizures within the past 24 hours 3. Delirium tremens within the past 24 hours 4. Hallucinations within the past 24 hours 5. Acute intervention needed for co occurring medical disorder 6. Acute intervention needed for co occurring psychiatric disorder 7. Severe withdrawal that cannot be handled at a lower level of care (continued vomiting, continued diarrhea, abnormal vital signs) requiring intravenous medication and/or fluids 8. Patient presents the following: CIWA greater than 12 Admission Criteria Met: Admission criteria met Admission ROS S - HPI Chief Complaint: This shit is killing me, I can't stop, I'm too young, I'm nobody, I want to stop using, I want to be someone Allergies/Adverse Reactions: Allergies Allergy/AdvReac Type Severity Reaction Status Date / Time risperidone [From Risperdal] Allergy Severe Difficulty Verified 10/24/18 12:23 Breathing History of Present Illness: 23 yo gentleman here for detox from alcohol and alprazolam - denies seizures or black outs, on [facility] in the [place] [phone] - (130mg) - was dosed today AND ALSO TOOK TOMORROW'S DOSE today, showed me his empty bottle. Patient cannot get full dose of methadone tomorrow. Patient is homeless, was last here 09/26/18 and was supposed to go to [facility] rehab but did not go because 'I couldn't find it'. He states he was in [facility] two weeks ago but 'it was a rat hole' and he left early. Rachel Alvarez | Reference #: [id number] Others' Prescriptions Patient Name: Davy Kirk Date: 1995 Address: [address] [facility] [place] [address] Sex: Male Rx Written Rx Dispensed Drug Quantity Days Supply Prescriber Name 08/30/2018 08/31/2018 chlordiazepoxide 25 mg capsule 8 2 Pio Guadalupe (BHAVNA) 08/01/2018 08/02/2018 lorazepam 2 mg tablet 8 2 Pio Che (BHAVNA) Exam Limitations: Clinical Condition - Ebola screening Have you traveled outside of the country in the last 21 days: No (N) Have you had contact with anyone from an Ebola affected area: No Have you been sick,other than usual withdrawal symptoms: No Do you have a fever: No - Review of Systems Constitutional: Loss of Appetite, Changes in sleep, Weakness EENT: reports: Blurred Vision Respiratory: reports: No Symptoms reported Cardiac: reports: No Symptoms Reported : reports: No Symptoms Reported Musculoskeletal: reports: No Symptoms Reported Integumentary: reports: Dryness Neuro: reports: Headache, Tremors Endocrine: reports: No Symptoms Reported Hematology: reports: No Symptoms Reported Psychiatric: reports: Judgement Intact, Mood/Affect Appropiate, Anxious Other Systems: Reviewed and Negative Patient History - Patient Medical History Hx Anemia: No Hx Asthma: Yes (Albuterol IH) Hx Chronic Obstructive Pulmonary Disease (COPD): No Hx Cancer: No Hx Cardiac Disorders: No Hx Congestive Heart Failure: No Hx Hypertension: No Hx Hypercholesterolemia: No Hx Pacemaker: No HX Cerebrovascular Accident: No Hx Seizures: No Hx Diabetes: No Hx Gastrointestinal Disorders: No Hx Liver Disease: Yes Hx Genitourinary Disorders: No Hx Sexually Transmitted Disorders: No Hx Renal Disease (ESRD): No Hx Thyroid Disease: No Hx Human Immunodeficiency Virus (HIV): No (Negative 2017) Hx Hepatitis C: Yes (not treated) Hx Depression: Yes (with anxiety - hospitalized [facility] Aug 2018) Hx Suicide Attempt: No Hx Bipolar Disorder: Yes (on meds) Hx Schizophrenia: Yes - Patient Surgical History Past Surgical History: No Hx Neurologic Surgery: No Hx Cataract Extraction: No Hx Cardiac Surgery: No Hx Lung Surgery: No Hx Breast Surgery: No Hx Breast Biopsy: No Hx Abdominal Surgery: No Hx Appendectomy: No Hx Cholecystectomy: No Hx Genitourinary Surgery: No Hx Section: No Hx Orthopedic Surgery: No Anesthesia Reaction: No - PPD History Previous Implant?: Yes Documented Results: Negative w/proof Implanted On Prior [facility] Admission?: Yes Date: 09/28/18 PPD to be Administered?: No - Reproductive History Patient is a Female of Child Bearing Age (11 -55 yrs old): No (male) - Smoking Cessation Smoking history: Current every day smoker Have you smoked in the past 12 months: Yes Aproximately how many cigarettes per day: 40 Hx Chewing Tobacco Use: No Initiated information on smoking cessation: Yes 'Breaking Loose' booklet given: 10/24/18 (give on floor) - Substances Abused alcohol Route: Oral Frequency: Daily Amount used: 2 pints Fireball (cinnamon whiskey) Age of first use: 13 Date of Last Use: 10/23/18 cocaaine Route: Injection Frequency: Daily Amount used: $200 Age of first use: 21 Date of Last Use: 10/24/18 alprazolam Route: Oral Frequency: Daily Amount used: seven 2mg tablets Age of first use: 15 Date of Last Use: 10/23/18 marijuana Route: Smoking Frequency: 3-6 times per week Amount used: 1 blunt Age of first use: 12 Date of Last Use: 10/21/18 k-2 Route: Smoking Frequency: 1-3 times last 30 days Amount used: 'a drag' Age of first use: 17 Date of Last Use: 10/23/18 Family Disease History - Family Disease History Family Disease History: Diabetes: Grandparent, Other: Father (living, in [place], healthy, ), Mother (living, in [place], mental issues), Brother (two - one heroin) Admission Physical Exam [facility] - Vital Signs Vital Signs: Vital Signs - 24 hr 10/24/18 10:33 Temperature 98.5 F Pulse Rate 78 Respiratory 18 Rate Blood Pressure 119/74 - Physical General Appearance: Yes: Nourished, Appropriately Dressed, Mild Distress, Anxious HEENTM: Yes: Hearing grossly Normal, Normocephalic, Normal Voice, Pharynx Normal Respiratory: Yes: Normal Breath Sounds, No Respiratory Distress Neck: Yes: No masses,lesions,Nodules Breast: Yes: Breast Exam Deferred Cardiology: Yes: Regular Rhythm, Regular Rate Abdominal: Yes: Flat Genitourinary: Yes: Frequency Back: Yes: Normal Inspection Musculoskeletal: Yes: full range of Motion, Gait Steady Extremities: Yes: Normal Inspection, Non-Tender Neurological: Yes: Fully Oriented, Alert, Motor Strength 5/5, Normal Mood/Affect , Normal Response Integumentary: Yes: Normal Color, Warm Lymphatic: Yes: Within Normal Limits - Diagnostic (1) Sedative, hypnotic or anxiolytic dependence, uncomplicated Current Visit: Yes Status: Chronic (2) Alcohol dependence with uncomplicated withdrawal Current Visit: Yes Status: Chronic (3) Cocaine dependence Current Visit: Yes Status: Chronic Qualifiers: Substance use status: uncomplicated Qualified Code(s): F14.20 - Cocaine dependence, uncomplicated (4) Methadone maintenance therapy patient Current Visit: Yes Status: Chronic (5) Asthma Current Visit: Yes Status: Chronic Qualifiers: Asthma severity: mild Asthma persistence: intermittent (6) Hepatitis C Current Visit: Yes Status: Acute Qualifiers: Viral hepatitis chronicity: chronic Hepatic coma status: without hepatic coma Qualified Code(s): B18.2 - Chronic viral hepatitis C Comment: not treated yet Cleared for Admission [facility] - Detox or Rehab [facility] Level of Care: Medically Managed Detox Regimen/Protocol: Librium S Breath Alcohol Content Breath Alcohol Content: 0 Urine Drug Screen - Results Drug Screen Negative: No Urine Drug Screen Results: THC-Marijuana, KAJAL-Cocaine, BZO-Benzodiazepines, MTD- Methadone Inpatient Rehab Admission - Rehab Decision to Admit Inpatient rehab admission?: No"
[2018-10-24] MEDS ORDERED: MENTHOL/PHENOL 1 EACH UD MM PRN (11:53)
[2018-10-24] MEDS ORDERED: IBUPROFEN 400 MG TABLET (FP) PO PRN (11:53)
[2018-10-24] MEDS ORDERED: P-EPHED 60MG/TRIPROLIDI 2.5MG TABLET PO PRN (11:53)
[2018-10-24] MEDS ORDERED: LOPERAMIDE HCL 2 MG CAPSULE PO PRN (11:53)
[2018-10-24] MEDS ORDERED: NICOTINE POLACRILEX 4 MG GUM BUC PRN (11:53)
[2018-10-24] MEDS ORDERED: MAG HYDROX/AL HYDROX/SIMETH 30 ML UNIT-DOSE CUP PO PRN (11:53)
[2018-10-24] MEDS ORDERED: ACETAMINOPHEN 325 MG TABLET (FP) PO PRN (11:53)
[2018-10-24] MEDS ORDERED: MAGNESIUM CITRATE 300 ML BOTTLE PO PRN (11:53)
[2018-10-24] MEDS ORDERED: guaiFENesin/D-METHORPHAN HB 10 ML UNIT-DOSE CUPS PO PRN (11:53)
[2018-10-24] MEDS ORDERED: MAGNESIUM HYDROX 2400MG/30ML ORAL SUSPENSION 30 ML CUP PO PRN (11:53)
[2018-10-24] MEDS ORDERED: ALBUTEROL SO4 8 GM HFA INHALER IH PRN (11:57)
[2018-10-24] MEDS: chlordiazePOXIDE HCL 25 MG CAPSULE PO PRN (13:45)
[2018-10-24] MEDS: NICOTINE 21 MG/24 HOURS TOPICAL PATCH TD SCH (13:47)
[2018-10-24] MEDS: chlordiazePOXIDE HCL 25 MG CAPSULE PO SCH ×2 (17:50→23:36)
[2018-10-24] MEDS ORDERED: MELATONIN 5 MG TABLETS PO PRN (22:00)
[2018-10-24] MEDS: THIAMINE HCL 100 MG TABLET (FP) PO SCH (22:46)
[2018-10-25] MEDS: chlordiazePOXIDE HCL 25 MG CAPSULE PO SCH ×4 (06:01→22:44)
[2018-10-25] MEDS ORDERED: ONDANSETRON *ODT* 4 MG TABLET SL PRN (09:59)
[2018-10-25] MEDS ORDERED: PRENATAL VITAMINS W/ FOLIC ACID TABLET (FP) PO SCH (10:00)
[2018-10-25] MEDS: NICOTINE 21 MG/24 HOURS TOPICAL PATCH TD SCH (10:17)
[2018-10-25 10:44] LABS: HEMATOCRIT 35.4 % (35.4-49); HEMOGLOBIN 12.1 GM/dL (11.7-16.9); MCH 28.6 pg (25.7-33.7); MCHC 34.1 g/dl (32.0-35.9); MEAN CELL VOLUME 83.9 fl (80-96); PLATELET COUNT 308 K/MM3 (134-434); RBC 4.22 M/mm3 (4.00-5.60); RDW 20.6 % (11.9-15.9); WHITE BLOOD COUNT 3.4 K/mm3 (4.0-10.0)
[2018-10-25 11:01] LABS: ALBUMIN 2.8 g/dl (3.4-5.0); ALK PHOS 116 U/L (45-117); ANION GAP 4 MMOL/L (8-16); BILIRUBIN,TOTAL 0.3 mg/dL (0.2-1); BLOOD UREA NITROGEN 17 mg/dL (7-18); CHLORIDE 108 mmol/L (98-107); CO2 28 mmol/L (21-32); CREATININE 0.6 mg/dL (0.55-1.3); GLUCOSE,RANDOM 86 mg/dL (74-106); POTASSIUM 4.4 mmol/L (3.5-5.1); SGOT/AST 302 U/L (15-37); SGPT/ALT 503 U/L (13-61); SODIUM 141 mmol/L (136-145)
--- NOTE | 2018-10-25 13:08 | PN ---
[facility] CIWA - CIWA Score Nausea/Vomitin Muscle Tremors: 4-Moderate,w/Arms Extend Anxiety: 3 Agitation: 3 Paroxysmal Sweats: 3 Orientation: 0-Oriented Tacttile Disturbances: 0-None Auditory Disturbances: 0-None Visual Disturbances: 0-None Headache: 0-None Present CIWA-Ar Total Score: 16 [facility] Progress Note (SOAP) Subjective: Feeling tired, sweating, chills, tremor, nausea Objective: 10/25/18 13:04 Last Vital Signs Temp Pulse Resp BP Pulse Ox 97.9 F 69 18 124/61 10/25/18 10:00 10/25/18 10:00 10/25/18 10:00 10/25/18 10:00 Laboratory Tests 10/25/18 10/25/18 10/25/18 07:35 07:35 07:35 WBC 3.4 L RBC 4.22 Hgb 12.1 Hct 35.4 MCV 83.9 MCH 28.6 MCHC 34.1 RDW 20.6 H Plt Count 308 D MPV 8.0 D Sodium 141 Potassium 4.4 Chloride 108 H Carbon Dioxide 28 Anion Gap 4 L BUN 17 Creatinine 0.6 Creat Clearance w eGFR > 60 Random Glucose 86 Calcium 8.0 L Total Bilirubin 0.3 AST 302 H ALT 503 H Alkaline Phosphatase 116 Total Protein 6.0 L Albumin 2.8 L RPR Titer Nonreactive Labs reviewed: AST/ALT 302/503, RDW 20.6 Assessment: 10/25/18 13:06 Withdrawal symptoms Noted with elevated LFTs (AST, ALT) and elevated RDW Plan: Continue detox Encouraged PO water hydration Elevated LFTs: could be related to alcohol dependence and hepatitis C Repeat AST/ALT in AM Elevated RDW: could be related to alcohol dependence or anemia Send iron studies in AM Consider treating anemia if positive as per anemia workup
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
[2018-10-25] MEDS ORDERED: DIVALPROEX NA *ER* EXTEND REL 500 MG TABLET.SA (FP) PO ONE (15:28)
[2018-10-25] MEDS: chlordiazePOXIDE HCL 25 MG CAPSULE PO PRN (18:09)
[2018-10-25] MEDS ORDERED: DIVALPROEX NA *ER* EXTEND REL 250 MG TABLET.SA PO SCH (22:00)
[2018-10-25] MEDS: THIAMINE HCL 100 MG TABLET (FP) PO SCH (22:44)
[2018-10-26] MEDS: chlordiazePOXIDE HCL 25 MG CAPSULE PO SCH (06:05)
[2018-10-26 06:28] VITALS: BP 115/52; PULSE 57; TEMP 97
--- NOTE | 2018-10-26 08:42 | PN ---
[facility] Progress Note Note: pt states he is leaving now because he cant wait to get his methadone. he is going to his methadone program to get reinstated. Pt refused any to stay regardless of any meds being offered until his methadone is verified. Pt was cursing and stating in [place] he needs to get out. Pt insisted on leaving and signed out AMA.
--- NOTE | 2018-10-26 09:53 | DS ---
[facility] Detox Discharge Summary Admission Date: 10/24/18 Discharge Date: 10/26/18 - History Present History: Alcohol Dependence, Cocaine Dependence, Opioid Dependence, Sedative Dependence, MMTP - Physical Exam Results Vital Signs: Vital Signs Temperature 97 F L 10/26/18 06:27 Pulse Rate 57 L 10/26/18 06:27 Respiratory Rate 18 10/26/18 06:27 Blood Pressure 115/52 L 10/26/18 06:27 O2 Sat by Pulse Oximetry (%) - Treatment Hospital Course: Detox Protocol Followed, Detoxed Safely, Responded well, Discharged Condition Good, Rehab Referral Accepted - Medication Discharge Medications: Ambulatory Orders Albuterol Sulfate Inhaler - [Ventolin Hfa Inhaler -] 1 - 2 inh PO Q4H PRN #1 inhaler 09/28/18 Divalproex *ER* [Depakote *ER* -] 250 mg PO BID #60 tablet.sa 09/28/18 Paroxetine HCl [Paxil -] 40 mg PO DAILY #30 tablet 09/28/18 Methadone [Dolophine -] 130 mg PO DAILY 10/24/18 Quetiapine Fumarate "Xr" [Seroquel Xr -] 150 mg PO BID 10/24/18 - Diagnosis (1) Hepatitis C Current Visit: Yes Status: Chronic Qualifiers: Viral hepatitis chronicity: chronic Hepatic coma status: without hepatic coma Qualified Code(s): B18.2 - Chronic viral hepatitis C (2) Alcohol dependence with uncomplicated withdrawal Current Visit: Yes Status: Chronic (3) Asthma Current Visit: Yes Status: Chronic Qualifiers: Asthma severity: mild Asthma persistence: intermittent (4) Cocaine dependence Current Visit: Yes Status: Chronic Qualifiers: Substance use status: uncomplicated Qualified Code(s): F14.20 - Cocaine dependence, uncomplicated (5) Methadone maintenance therapy patient Current Visit: Yes Status: Chronic (6) Sedative, hypnotic or anxiolytic dependence, uncomplicated Current Visit: Yes Status: Chronic (7) Bipolar disorder Current Visit: No Status: Acute (8) Drug-induced mood disorder Current Visit: No Status: Acute (9) Nicotine dependence Current Visit: Yes Status: Chronic Qualifiers: Nicotine product type: cigarettes Substance use status: uncomplicated Qualified Code(s): F17.210 - Nicotine dependence, cigarettes, uncomplicated (10) Anxiety Current Visit: No Status: Chronic (11) Depression Current Visit: No Status: Chronic Qualifiers: Depression Type: unspecified Qualified Code(s): F32.9 - Major depressive disorder, single episode, unspecified - AMA Did Patient Leave Against Medical Advice: Yes (going home)
[2018-10-26] MEDS ORDERED: PARoxetine HCL 20 MG TABLET (FP) PO SCH (10:00)
[2018-10-26] MEDS ORDERED: chlordiazePOXIDE 5 MG CAPSULE PO SCH (17:00)
[2018-10-27] MEDS ORDERED: chlordiazePOXIDE HCL 10 MG CAPSULE PO SCH (17:00)
== END 2018-10-26 08:53 | disposition left against medical advice (07) | DRG 770 ==
LOC: YASAS 10:29 → Y6N 12:22
PROVIDERS: ADMIT Surgery; ATTEND Surgery
PROC: HZ2ZZZZ Detoxification Services for Substance Abuse Treatment (ICD-10-PCS; principal; 2018-10-24)
DX: F10.230 Alcohol dependence with withdrawal, uncomplicated (principal); F13.230 Sedative, hypnotic or anxiolytic dependence with withdrawal, uncomplicated; F14.20 Cocaine dependence, uncomplicated; F11.20 Opioid dependence, uncomplicated; F12.10 Cannabis abuse, uncomplicated; F31.9 Bipolar disorder, unspecified; F19.24 Other psychoactive substance dependence with psychoactive substance-induced mood disorder; F41.8 Other specified anxiety disorders; J45.20 Mild intermittent asthma, uncomplicated; B18.2 Chronic viral hepatitis C; Z88.8 Allergy status to other drugs, medicaments and biological substances
CPT/HCPCS: 36415; 80053; 85027; 86593; Q0162

== ENCOUNTER 2019-02-09 09:03 | Inpatient (IN) | payer OTHER ==
[2019-02-09 09:28] VITALS: BMI 34.4
--- NOTE | 2019-02-09 11:30 | HP ---
"COWS - Scale Resting Pulse: 0= [place] 80 or Below Sweatin= Chills/Flushing Restless Observation: 0= Sits Still Pupil Size: 0= Normal to Room Light Bone or Joint Aches: 4=Acute Joint/Muscle Pain Runny Nose/ Eye Tearin= Nasal Congestion GI Upset > 30mins: 1= Stomach Cramp Tremor Observation: 0= None Yawning Observation: 0= None Anxiety or Irritability: 1=Feels Anxious/Irritable Goose Flesh Skin: 0=Smooth Skin COWS Score: 8 CIWA Score - Admission Criteria OAS Guidelines: Admission for Medically Managed Detox: Requires at least one of the followin. CIWA greater than 12 2. Seizures within the past 24 hours 3. Delirium tremens within the past 24 hours 4. Hallucinations within the past 24 hours 5. Acute intervention needed for co occurring medical disorder 6. Acute intervention needed for co occurring psychiatric disorder 7. Severe withdrawal that cannot be handled at a lower level of care (continued vomiting, continued diarrhea, abnormal vital signs) requiring intravenous medication and/or fluids 8. Admission ROS [facility] Allergies/Adverse Reactions: Allergies Allergy/AdvReac Type Severity Reaction Status Date / Time risperidone [From Risperdal] Allergy Severe Difficulty Verified 02/09/19 09:19 Breathing History of Present Illness: This report was requested by: Marina Diop | Reference #: [id number] Others' Prescriptions Patient Name: Davy Kirk Date: 1995 Address: [place] [address] Sex: Male Rx Written Rx Dispensed Drug Quantity Days Supply Prescriber Name 12/13/2018 12/14/2018 lorazepam 2 mg tablet 8 2 Pio Che (BHAVNA) 08/30/2018 08/31/2018 chlordiazepoxide 25 mg capsule 8 2 Pio Guadalupe (BHAVNA) 08/01/2018 08/02/2018 lorazepam 2 mg tablet 8 2 Pio Che (BHAVNA) * - Drugs marked with an asterisk are compound drugs. If the compound drug is made up of more than one controlled substance, then each controlled substance will be a separate row in the table. pt here requesting detox from heroin use , reports 20 bags/day ivdu , x 3- 4 years, latest use this morning , current symptoms as above . on MMTP Promesa > 1 year , stopped a few months ago when he went to [place] , MDD 140 mg . cocaine : 1 gr/day ivdu , needles from the exchange , denies sharing , + re -using , denies abscess , denies od , denies sobriety except during detox and during inpt program [facility] , prior detox [facility] a few months ago . cannabis - daily denies other illicits tobacco : 1 ppd pmhx :htn , asthma pshx :denies Psych : depression , denies SI / HI meds : vasotec , seroquel , paxil Exam Limitations: Clinical Condition, Intoxication - Ebola screening Have you traveled outside of the country in the last 21 days: No Have you had contact with anyone from an Ebola affected area: No Do you have a fever: No - Review of Systems Constitutional: See HPI, Loss of Appetite EENT: reports: Other (myopia) Respiratory: reports: No Symptoms reported Cardiac: reports: No Symptoms Reported GI: reports: See HPI : reports: No Symptoms Reported Musculoskeletal: reports: See HPI Integumentary: reports: See HPI Neuro: reports: Headache, Unsteady Gait Endocrine: reports: No Symptoms Reported Psychiatric: reports: Orientated x3, Anxious Patient History - Patient Medical History Hx Anemia: No Hx Asthma: Yes (Albuterol IH) Hx Chronic Obstructive Pulmonary Disease (COPD): No Hx Cancer: No Hx Cardiac Disorders: No Hx Congestive Heart Failure: No Hx Hypertension: No Hx Hypercholesterolemia: No Hx Pacemaker: No HX Cerebrovascular Accident: No Hx Seizures: No Hx Diabetes: No Hx Gastrointestinal Disorders: No Hx Liver Disease: Yes Hx Genitourinary Disorders: No Hx Sexually Transmitted Disorders: No Hx Renal Disease (ESRD): No Hx Thyroid Disease: No Hx Human Immunodeficiency Virus (HIV): No (Negative 2017) Hx Hepatitis C: Yes (not treated) Hx Depression: Yes (with anxiety - hospitalized [facility] Aug 2018) Hx Suicide Attempt: No Hx Bipolar Disorder: Yes (on meds) Hx Schizophrenia: Yes - Patient Surgical History Past Surgical History: No Hx Neurologic Surgery: No Hx Cataract Extraction: No Hx Cardiac Surgery: No Hx Lung Surgery: No Hx Breast Surgery: No Hx Breast Biopsy: No Hx Abdominal Surgery: No Hx Appendectomy: No Hx Cholecystectomy: No Hx Genitourinary Surgery: No Hx Section: No Hx Orthopedic Surgery: No Anesthesia Reaction: No - PPD History Date: 09/28/18 Results: NEGATIVE - Smoking Cessation Smoking history: Current every day smoker Have you smoked in the past 12 months: Yes Aproximately how many cigarettes per day: 40 Hx Chewing Tobacco Use: No Initiated information on smoking cessation: No - Substances abused Heroin Substance route: Injection Frequency: Daily Amount used: 3grams Age of first use: 19 Date of last use: 02/09/19 Cocaine Substance route: Injection Frequency: Daily Amount used: 1gram Age of first use: 17 Date of last use: 02/08/19 Family Disease History - Family Disease History Family Disease History: Diabetes: Grandparent, Other: Father (living, in [place], healthy, ), Mother (living, in [place], mental issues), Brother (two - one heroin) Admission Physical Exam S - Vital Signs Vital Signs: Vital Signs - 24 hr 02/09/19 09:19 Temperature 97.5 F L Pulse Rate 76 Respiratory 18 Rate Blood Pressure 129/79 - Physical General Appearance: Yes: Disheveled, Mild Distress, Intoxicated, Irritable HEENTM: Yes: EOMI, Hearing grossly Normal, Normocephalic, Normal Voice Respiratory: Yes: Chest Non-Tender, Lungs Clear, Normal Breath Sounds Neck: Yes: No masses,lesions,Nodules, Trachea in good position Cardiology: Yes: Regular Rhythm, Regular Rate, S1, S2 Abdominal: Yes: Non Tender, Soft Back: Yes: Normal Inspection Musculoskeletal: Yes: Muscle Pain Extremities: Yes: Non-Tender, Erythema (left forearm edema.erythema, tender to palpation in non-specific pattern) Neurological: Yes: Alert, Motor Strength 5/5 Integumentary: Yes: Warm, Track Aburto - Addiitonal Findings: pt returned from er w/ rx for clindamycin qid x 10 days , abscess I & D wound dressing in place . - Diagnostic (1) Opioid dependence Current Visit: Yes Status: Acute Qualifiers: Substance use status: with intoxication (2) Cocaine dependence Current Visit: Yes Status: Acute Qualifiers: Substance use status: uncomplicated Qualified Code(s): F14.20 - Cocaine dependence, uncomplicated Screened but not Admitted - Documentation of Visit Level of Care Recommended at this Time: ER Evaluation/Care (left FA abscess/ cellulitis ) Breathalyzer - Breathalyzer Breathalyzer: 0 Urine Drug Screen - Test Device Lot number: [id number] Expiration date: 10/22/20 - Control Is test valid?: Yes - Results Drug screen NEGATIVE: No Urine drug screen results: THC-Marijuana, KAJAL-Cocaine, FEN-Fentanyl, MOP-Opiates , BZO-Benzodiazepines Inpatient Rehab Admission - Rehab Decision to Admit Inpatient rehab admission?: No"
[2019-02-09] MEDS ORDERED: METHOCARBAMOL 500 MG TABLET PO PRN (18:54)
[2019-02-09] MEDS ORDERED: ACETAMINOPHEN 325 MG TABLET (FP) PO PRN ×2 (18:54)
[2019-02-09] MEDS ORDERED: MENTHOL/PHENOL 1 EACH UD MM PRN (18:54)
[2019-02-09] MEDS ORDERED: MAGNESIUM CITRATE 300 ML BOTTLE PO PRN (18:54)
[2019-02-09] MEDS ORDERED: IBUPROFEN 400 MG TABLET (FP) PO PRN (18:54)
[2019-02-09] MEDS ORDERED: MELATONIN 5 MG TABLETS PO PRN (18:54)
[2019-02-09] MEDS ORDERED: NICOTINE POLACRILEX 2 MG GUM BUC PRN (18:54)
[2019-02-09] MEDS ORDERED: BISMUTH SUBSALICYLATE 524 MG/30 ML UD PO PRN (18:54)
[2019-02-09] MEDS ORDERED: MAGNESIUM HYDROX 2400MG/30ML ORAL SUSPENSION 30 ML CUP PO PRN (18:54)
[2019-02-09] MEDS ORDERED: MAG HYDROX/AL HYDROX/SIMETH 30 ML UNIT-DOSE CUP PO PRN (18:54)
[2019-02-09] MEDS ORDERED: METHADONE HCL 10 MG TABLET (FOR DETOX USE ONLY) PO ONE (19:01)
[2019-02-09] MEDS: THIAMINE HCL 100 MG TABLET (FP) PO SCH (23:30)
--- NOTE | 2019-02-10 08:55 | CONSULT ---
[facility] Psychiatric Consult - Data Date of interview: 02/10/19 (Self-referred) Admission source: Self-referred Identifying data: Mr Kirk is a 23 years old single male, unemployed with no source of income, homeless seeking detox treatment for opioid and cocaine Substance Abuse History: Reports history of heroin and cocaine use. Refer to addiction counselor's summary for further information Medical History: Significant for hypertension and hepatitis C. Smokes 1 ppd Psychiatric History: Reports that his first psychiatric contact was 2011 as outpatient in [facility]. He was diagnosed with Bipolar II Disorder and started on psychotropic medications. Reports two previous psychiatric hospitalizations in [place], most recent one was 4-5 years ago. Reports that up to 1.5 month ago, he was receiving outpatient treatment at [facility] and he was prescribed Seroquel XR 150 mg/bid, Paxil 40 mg/day and Depakote 250/day. Reports that due to his addiction, he has not been taking Paxil and Depakote but he has been taking Seroquel. Denies suicidal ideations. At present, denies experiencing psychotic, manic symptoms, S/H ideations. However, reports feeling mildly irritable, anxious and sleeping poorly Physical/Sexual Abuse/Trauma History: Denies history of emotional, physical or sexual abuse as well as DV relationship Additional Comment: Reports history of 5 previous misdemear arrests on charges of shoplifting. Mental Status Exam - Mental Status Exam Alert and Oriented to: Time, Place, Person Cognitive Function: Fair Patient Appearance: Well Groomed Mood: Anxious, Irritable (mildly) Affect: Appropriate Patient Behavior: Cooperative Speech Pattern: Clear Voice Loudness: Normal Thought Process: Intact, Goal Oriented Thought Disorder: Not Present Hallucinations: Denies Suicidal Ideation: Denies Insight/Judgement: Poor Sleep: Poorly Appetite: Poor Muscle strength/Tone: Normal Gait/Station: Normal Psychiatric Findings - Problem List ([place] 1, 2,3) (1) Bipolar II disorder Current Visit: Yes Status: Chronic (2) Substance induced mood disorder Current Visit: Yes Status: Acute (3) Substance-induced sleep disorder Current Visit: Yes Status: Acute (4) Opioid dependence, uncomplicated Current Visit: Yes Status: Acute (5) Cocaine dependence Current Visit: Yes Status: Acute Qualifiers: Substance use status: uncomplicated Qualified Code(s): F14.20 - Cocaine dependence, uncomplicated (6) Cannabis dependence Current Visit: Yes Status: Acute (7) Nicotine dependence Current Visit: No Status: Chronic Qualifiers: Nicotine product type: cigarettes Substance use status: uncomplicated Qualified Code(s): F17.210 - Nicotine dependence, cigarettes, uncomplicated (8) Hepatitis C Current Visit: No Status: Chronic Qualifiers: Viral hepatitis chronicity: chronic Hepatic coma status: without hepatic coma Qualified Code(s): B18.2 - Chronic viral hepatitis C Comment: not treated yet (9) HTN (hypertension) Current Visit: Yes Status: Acute - Initial Treatment Plan Initial Treatment Plan: 1) Continue Seroquel XR 300 mg po HS. 2) Continue inpatient detoxification
[2019-02-10] MEDS ORDERED: METHADONE HCL 10 MG TABLET (FOR DETOX USE ONLY) PO ONE (10:00)
[2019-02-10] MEDS: PRENATAL VITAMINS W/ FOLIC ACID TABLET (FP) PO SCH (10:10)
--- NOTE | 2019-02-10 11:20 | EKG ---
Test Reason : Blood Pressure : / mmHG Vent. Rate : 079 BPM Atrial Rate : 079 BPM P-R Int : 162 ms QRS Dur : 090 ms QT Int : 376 ms P-R-T Axes : 011 033 014 degrees QTc Int : 431 ms NORMAL SINUS RHYTHM NORMAL ECG NO PREVIOUS ECGS AVAILABLE Confirmed by LINO PURDY, PASCUAL ([id number]) on 02/10/2019 11:20:14 AM Referred By: Confirmed By:PASCUAL HUYNH MD
[2019-02-10] MEDS: PATIENT'S OWN MEDICATION (NON-FORMULARY) (Clindamycin [Cleocin -] 300 MG) PO SCH ×4 (11:47→23:57)
--- NOTE | 2019-02-10 15:18 | PN ---
[facility] COWS - Scale Resting Pulse: 1= [place] 81-100 Sweatin= Chills/Flushing Restless Observation: 0= Sits Still Pupil Size: 0= Normal to Room Light Bone or Joint Aches: 1= Mild Discomfort Runny Nose/ Eye Tearin= Nasal Congestion GI Upset > 30mins: 1= Stomach Cramp Tremor Observation of Outstretched Hands: 0= None Yawning Observation: 0= None Anxiety or Irritability: 1=Feels Anxious/Irritable Goose Flesh Skin: 0=Smooth Skin COWS Score: 6 [facility] Progress Note (SOAP) Subjective: pt here for heroin detox, was on methadone program O: Vital Signs - 24 hr 02/09/19 02/10/19 02/10/19 21:52 00:30 03:30 Temperature 99.9 F H Pulse Rate 77 Respiratory 18 18 18 Rate Blood Pressure 146/55 L 02/10/19 02/10/19 08:10 15:13 Temperature 97.7 F 98.6 F Pulse Rate 60 62 Respiratory 18 18 Rate Blood Pressure 150/70 134/65 Laboratory Tests 02/10/19 07:30 RPR Titer Nonreactive Laboratory Tests 02/10/19 07:30 RPR Titer Nonreactive a/p: continue opioid detox protocol- pt seems to be doing well
[2019-02-10] MEDS: hydrOXYzine PAMOATE 25 MG CAPSULE (FP) PO PRN (22:36)
[2019-02-10] MEDS: THIAMINE HCL 100 MG TABLET (FP) PO SCH (22:36)
[2019-02-10] MEDS: cloNIDine HCL 0.1 MG TABLET PO PRN (22:36)
[2019-02-11] MEDS: PATIENT'S OWN MEDICATION (NON-FORMULARY) (Clindamycin [Cleocin -] 300 MG) PO SCH ×3 (06:57→22:28)
[2019-02-11] MEDS ORDERED: METHADONE HCL 10 MG TABLET (FOR DETOX USE ONLY) PO ONE (10:00)
[2019-02-11] MEDS: PRENATAL VITAMINS W/ FOLIC ACID TABLET (FP) PO SCH (10:12)
--- NOTE | 2019-02-11 10:53 | PN ---
BHS COWS - Scale Resting Pulse: 0= [place] 80 or Below Sweatin= Chills/Flushing Restless Observation: 1= Difficult to Sit Still Pupil Size: 1= Pupils >than Normal Bone or Joint Aches: 2= Severe Diffuse Aches Runny Nose/ Eye Tearin= Runny Nose/Eyes GI Upset > 30mins: 2= Nausea/Diarrhea Tremor Observation of Outstretched Hands: 2= Slight Tremor Visible Yawning Observation: 1= 1-2x During Session Anxiety or Irritability: 2=Irritable/Anxious Goose Flesh Skin: 0=Smooth Skin COWS Score: 14 BHS Progress Note (SOAP) Subjective: alert,irritable,anxious,interrupted sleep,pain in the body Objective: 02/11/19 10:52 Vital Signs Temperature 97.9 F 02/11/19 09:15 Pulse Rate 62 02/11/19 09:15 Respiratory Rate 02/11/19 09:15 Blood Pressure 118/62 02/11/19 09:15 O2 Sat by Pulse Oximetry (%) Assessment: 02/11/19 10:53 withdrawal symptom Plan: continue detox
--- NOTE | 2019-02-11 11:34 | PN ---
BHS Progress Note Note: history of neuropathy on neurontin 300 mgs po tid ordered,bacitracin ointment bid left forearm, cane for ambulatory aid
[2019-02-11] MEDS: BACITRACIN 15 GM TUBE TOPICAL OINTMENT TP SCH ×2 (12:18→22:30)
[2019-02-11] MEDS: GABAPENTIN 300 MG CAPSULE (FP) PO SCH ×2 (14:38→22:30)
[2019-02-11] MEDS: THIAMINE HCL 100 MG TABLET (FP) PO SCH (22:29)
[2019-02-11] MEDS: cloNIDine HCL 0.1 MG TABLET PO PRN (22:29)
[2019-02-11] MEDS: hydrOXYzine PAMOATE 25 MG CAPSULE (FP) PO PRN (22:30)
[2019-02-12] MEDS: PATIENT'S OWN MEDICATION (NON-FORMULARY) (Clindamycin [Cleocin -] 300 MG) PO SCH ×2 (06:31→06:32)
[2019-02-12] MEDS: GABAPENTIN 300 MG CAPSULE (FP) PO SCH (06:31)
[2019-02-12 06:33] VITALS: BP 103/45; PULSE 67; TEMP 97.7
--- NOTE | 2019-02-12 09:07 | DS ---
[facility] Detox Discharge Summary Admission Date: 02/09/19 Discharge Date: 02/12/19 - History Present History: Cannabis Dependence, Cocaine Dependence, Opioid Dependence, MMTP - Physical Exam Results Vital Signs: Vital Signs Temperature 97.7 F 02/12/19 06:00 Pulse Rate 67 02/12/19 06:00 Respiratory Rate 18 02/12/19 06:00 Blood Pressure 103/45 L 02/12/19 06:00 O2 Sat by Pulse Oximetry (%) - Treatment Hospital Course: Detox Protocol Followed, Detoxed Safely, Responded well, Discharged Condition Good, Rehab Referral Accepted - Medication Discharge Medications: Ambulatory Orders Albuterol Sulfate Inhaler - [Ventolin Hfa Inhaler -] 1 - 2 inh PO Q4H PRN #1 inhaler 09/28/18 Divalproex *ER* [Depakote *ER* -] 250 mg PO BID #60 tablet.sa 09/28/18 Paroxetine HCl [Paxil -] 40 mg PO DAILY #30 tablet 09/28/18 Quetiapine Fumarate "Xr" [Seroquel Xr -] 150 mg PO BID 10/24/18 Clindamycin [Cleocin -] 300 mg PO Q6HPO 10 Days #40 capsule 02/09/19 - Diagnosis (1) Cannabis dependence Current Visit: Yes Status: Chronic (2) Cocaine dependence Current Visit: Yes Status: Chronic Qualifiers: Substance use status: uncomplicated Qualified Code(s): F14.20 - Cocaine dependence, uncomplicated (3) HTN (hypertension) Current Visit: Yes Status: Chronic Qualifiers: Hypertension type: essential hypertension Qualified Code(s): I10 - Essential (primary) hypertension (4) Opioid dependence, uncomplicated Current Visit: Yes Status: Chronic (5) Substance induced mood disorder Current Visit: Yes Status: Acute (6) Substance-induced sleep disorder Current Visit: Yes Status: Acute (7) Bipolar II disorder Current Visit: Yes Status: Chronic (8) Abscess Current Visit: No Status: Acute (9) Bipolar disorder Current Visit: No Status: Acute (10) Cellulitis Current Visit: Yes Status: Acute Qualifiers: Site of cellulitis: extremity Site of cellulitis of extremity: lower extremity Laterality: left Qualified Code(s): L03.116 - Cellulitis of left lower limb (11) Drug-induced mood disorder Current Visit: No Status: Acute (12) Alcohol dependence with uncomplicated withdrawal Current Visit: Yes Status: Chronic (13) Anxiety Current Visit: No Status: Chronic (14) Asthma Current Visit: No Status: Chronic Qualifiers: Asthma severity: mild Asthma persistence: intermittent (15) Depression Current Visit: No Status: Chronic Qualifiers: Depression Type: unspecified Qualified Code(s): F32.9 - Major depressive disorder, single episode, unspecified (16) Hepatitis C Current Visit: No Status: Chronic Qualifiers: Viral hepatitis chronicity: chronic Hepatic coma status: without hepatic coma Qualified Code(s): B18.2 - Chronic viral hepatitis C (17) Methadone maintenance therapy patient Current Visit: Yes Status: Chronic (18) Nicotine dependence Current Visit: Yes Status: Chronic Qualifiers: Nicotine product type: cigarettes Substance use status: uncomplicated Qualified Code(s): F17.210 - Nicotine dependence, cigarettes, uncomplicated (19) Sedative, hypnotic or anxiolytic dependence, uncomplicated Current Visit: Yes Status: Chronic - AMA Did Patient Leave Against Medical Advice: No (referred to [facility].)
[2019-02-12] MEDS: PRENATAL VITAMINS W/ FOLIC ACID TABLET (FP) PO SCH (09:30)
[2019-02-12] MEDS: BACITRACIN 15 GM TUBE TOPICAL OINTMENT TP SCH (09:34)
--- NOTE | 2019-02-12 09:47 | PN ---
[facility] Progress Note Note: Before pt was leaving he was harassing aligner typewriter by constantly insisting on giving him more medication and when discussed the reason that his medication has scheduled dose he was following me insisting on giving him medication. pt was given d/c orders, scheduled medication given by. I feel threatened ,constantly picking on me. pt was escorted by security off the unit to facilitate his discharge. Pt is not to return to [facility] if he returns for detox in the near future.
[2019-02-12] MEDS ORDERED: METHADONE HCL 10 MG TABLET (FOR DETOX USE ONLY) PO ONE (10:00)
[2019-02-13] MEDS ORDERED: METHADONE HCL 5 MG TABLET (FOR DETOX USE ONLY) PO ONE (06:00)
== END 2019-02-12 09:40 | disposition left against medical advice (07) | DRG 770 ==
LOC: YASAS 09:03 → Y6N 19:12
PROVIDERS: ADMIT Surgery; ATTEND Surgery
PROC: HZ2ZZZZ Detoxification Services for Substance Abuse Treatment (ICD-10-PCS; principal; 2019-02-09)
DX: F10.230 Alcohol dependence with withdrawal, uncomplicated (principal); F13.20 Sedative, hypnotic or anxiolytic dependence, uncomplicated; F14.20 Cocaine dependence, uncomplicated; F12.20 Cannabis dependence, uncomplicated; F11.20 Opioid dependence, uncomplicated; F17.210 Nicotine dependence, cigarettes, uncomplicated; F19.24 Other psychoactive substance dependence with psychoactive substance-induced mood disorder; F19.282 Other psychoactive substance dependence with psychoactive substance-induced sleep disorder; F41.9 Anxiety disorder, unspecified; F32.9 Major depressive disorder, single episode, unspecified; F31.81 Bipolar II disorder; B18.2 Chronic viral hepatitis C; I10 Essential (primary) hypertension; J45.20 Mild intermittent asthma, uncomplicated; L03.116 Cellulitis of left lower limb
CPT/HCPCS: 36415; 86593; 93005; 93010; J0735

== ENCOUNTER 2019-02-09 13:00 | Emergency (ER) | payer OTHER ==
[2019-02-09 13:19] VITALS: BMI 32.5
--- NOTE | 2019-02-09 13:44 | PDOC ---
History of Present Illness - General Chief Complaint: Abscess Boil Stated Complaint: ABSCESS ON FOREARM Time Seen by Provider: 02/09/19 13:35 - History of Present Illness Initial Comments: The pt is a 23M w/ a history of HCV, IVDU, cocaine use, heroin use, EtOH use who presents for evaluation of 1 week of left forearm swelling. The pt reports injecting heroin and cocaine in that area. He reports the swelling and redness was initially worse, including hand and up to elbow. Now is isolated to left distal 1/3 forearm. It has been improving but persistent. Denies fevers/chills, chest pain, trouble breathing, N/V/C/D, abdominal pain, or changes in sensation. 02/09/19 14:12 Past History - Past Medical History Allergies/Adverse Reactions: Allergies Allergy/AdvReac Type Severity Reaction Status Date / Time risperidone [From Risperdal] Allergy Severe Difficulty Verified 02/09/19 09:19 Breathing Home Medications: Ambulatory Orders Albuterol Sulfate Inhaler - [Ventolin Hfa Inhaler -] 1 - 2 inh PO Q4H PRN #1 inhaler 09/28/18 Divalproex *ER* [Depakote *ER* -] 250 mg PO BID #60 tablet.sa 09/28/18 Paroxetine HCl [Paxil -] 40 mg PO DAILY #30 tablet 09/28/18 Quetiapine Fumarate "Xr" [Seroquel Xr -] 150 mg PO BID 10/24/18 Clindamycin [Cleocin -] 300 mg PO Q6HPO 10 Days #40 capsule 02/09/19 Anemia: No Asthma: Yes (Albuterol IH) Cancer: No Cardiac Disorders: No CVA: No COPD: No CHF: No Diabetes: No GI Disorders: No Disorders: No HTN: Yes Hypercholesterolemia: No Kidney Stones: No Liver Disease: Yes Seizures: No Thyroid Disease: No - Surgical History Abdominal Surgery: No Appendectomy: No Cardiac Surgery: No Cholecystectomy: No Lung Surgery: No Neurologic Surgery: No Orthopedic Surgery: No - Reproductive History Testicular Surgery: No - Suicide/Smoking/Psychosocial Hx Smoking History: Current every day smoker Have you smoked in the past 12 months: Yes Number of Cigarettes Smoked Daily: 20 Information on smoking cessation initiated: No 'Breaking Loose' booklet given: 10/24/18 (give on floor) Hx Alcohol Use: No Drug/Substance Use Hx: Yes Substance Use Type: Alcohol, Cocaine, Marijuana, Opiates Hx Substance Use Treatment: Yes Review of Systems - Review of Systems Able to Perform ROS?: Yes Comments:: GENERAL/CONSTITUTIONAL: No fever or chills. No weakness HEAD, EYES, EARS, NOSE AND THROAT: No change in vision. No ear pain or discharge. No sore throat CARDIOVASCULAR: No chest pain or shortness of breath RESPIRATORY: Denies cough, hemoptysis GASTROINTESTINAL: No nausea, vomiting, diarrhea or constipation GENITOURINARY: No dysuria, frequency, or change in urination MUSCULOSKELETAL: No joint or muscle swelling or pain. No neck or back pain NEUROLOGIC: No headache, vertigo, loss of consciousness, or change in strength/ sensation ENDOCRINE: No increased thirst. No abnormal weight change HEMATOLOGIC/LYMPHATIC: No anemia, easy bleeding, or history of blood clots ALLERGIC/IMMUNOLOGIC: No hives or skin allergy 02/09/19 13:43 Is the patient limited Danish proficient: No *Physical Exam - Vital Signs Last Vital Signs Temp Pulse Resp BP Pulse Ox 98.3 F 79 18 124/77 100 02/09/19 13:14 02/09/19 13:14 02/09/19 13:14 02/09/19 13:14 02/09/19 13:14 - Physical Exam Comments: GENERAL: Awake, alert, and oriented to person/place/time, in no acute distress HEAD: No signs of trauma, normocephalic, atraumatic EYES: PERRLA, EOMI, sclera anicteric, conjunctiva clear ENT: Hearing grossly normal, nares patent, oropharynx clear without exudates. No uvular deviation. Moist mucosa LUNGS: No distress, speaks full sentences, clear to auscultation bilaterally HEART: Regular rate and rhythm, normal S1 and S2, no murmurs appreciated, peripheral pulses normal and equal bilaterally ABDOMEN: Soft, nontender, normoactive bowel sounds. No guarding, no rebound EXTREMITIES: Left distal medial forearm swelling with induration NEUROLOGICAL: Cranial nerves II through XII grossly intact. Normal speech, normal gait, no focal sensorimotor deficits SKIN: arm as above, otherwise warm and dry 02/09/19 13:44 Procedures - Incision and Drainage I&D Site: Left: Arm (L medial forearm) Betadine cleansed: Yes Anesthesia: 1% Lidocaine Volume(ml): 5 Blade Size: 11 Attempts: 1 Iodinated Packin in Complications: none Dressing: Yes (gauze and stretch gauze wrap) Progress: I&D of L forearm Area prepped with chlorhexidine Single incision with 11 blade made. Abscess loculations broken with hemostat Drainage of approximately 4cc of purulent material from wound Wound packed with 1in iodoform Dressed with dry gauze and wrapped with stretch gauze ED Treatment Course - LABORATORY CBC & Chemistry Diagram: 02/09/19 14:40 02/09/19 14:40 Medical Decision Making - Medical Decision Making The pt is a 23M w/ a history of IVDU who presents for evaluation of a L forearm abscess S/p bedside I&D w/ drainage of approximately 4cc of purulent material 02/09/19 15:16 Wound culture sent Clindamycin 350mg PO once Rx for Clindamycin 350mg PO Q6H for 10 days for cellulitis Wound care, discharge instructions, and return precautions given Pt in agreement and verbalized understanding Dispo: D/C to [facility] w/ IV abx 02/09/19 15:45 *DC/Admit/Observation/Transfer Diagnosis at time of Disposition: Abscess Cellulitis Qualifiers: Site of cellulitis: extremity Site of cellulitis of extremity: lower extremity Laterality: left Qualified Code(s): L03.116 - Cellulitis of left lower limb - Discharge Dispostion Disposition: HOME Condition at time of disposition: Good Decision to Admit order: No - Prescriptions Prescriptions: Clindamycin [Cleocin -] 300 mg PO Q6HPO 10 Days #40 capsule - Referrals Referrals: [facility] [Provider Group] - Patient Instructions Printed Discharge Instructions: DI for Incision and Drainage of a Skin Abscess Additional Instructions: You were seen in the Emergency Department for evaluation of a skin infection. Your abscess was drained and you were given antibiotics. A prescription for Clindamycin to be taken 4 times daily was sent to the pharmacy. Take as directed. Review the handout provided at discharge. Follow up with your primary care provider. Return to the Emergency Department if you develop fevers/chills, worsening pain, worsening redness/swelling, persistent purulent drainage, or any new/concerning symptoms. Wash the wound everyday with soap and water. Re-pack the wound for at least the next 3 days with the iodoform provided and keep covered. - Post Discharge Activity
[2019-02-09 14:51] LABS: BASO % 0.6 % (0-2.0); EOS % 3.6 % (0-4.5); HEMATOCRIT 37.8 % (35.4-49); HEMOGLOBIN 12.7 GM/dL (11.7-16.9); LYMPH % 17.5 % (8-40); MCH 29.3 pg (25.7-33.7); MCHC 33.6 g/dl (32.0-35.9); MEAN CELL VOLUME 87.2 fl (80-96); MEAN PLT VOLUME 7.5 fl (7.5-11.1); MONO % 12.5 % (3.8-10.2); NEUT % 65.8 % (42.8-82.8); RBC 4.33 M/mm3 (4.00-5.60); RDW 14.5 % (11.9-15.9)
[2019-02-09 15:24] LABS: ALBUMIN 3.3 g/dl (3.4-5.0); BILIRUBIN,TOTAL 0.4 mg/dL (0.2-1); BLOOD UREA NITROGEN 7.9 mg/dL (7-18); CALCIUM 8.7 mg/dL (8.5-10.1); CREATININE 0.6 mg/dL (0.55-1.3); POTASSIUM 3.9 mmol/L (3.5-5.1); TOT PROT 7.3 g/dl (6.4-8.2)
[2019-02-09] MEDS ORDERED: VANCOMYCIN 1 GM in D5W (PRE-DOCKED) 1,000 MG/250 ML IVPB ONE (15:25)
[2019-02-09] MEDS ORDERED: CLINDAMYCIN HCL 300 MG CAPSULE PO ONE (15:41)
[2019-02-09 15:55] LABS: PLATELET COUNT 410 K/MM3 (134-434)
[2019-02-09 16:00] VITALS: BP 132/59; PULSE 68; TEMP 98
--- NOTE | 2019-02-09 18:58 | PDOC ---
Documentation entered by Tosha Camarena SCRIBE, acting as scribe for Cris Myers MD. Cris Myers MD: This documentation has been prepared by the sandeeibe, Tosha Camarena SCRIBE, under my direction and personally reviewed by me in its entirety. I confirm that the documentation accurately reflects all work, treatment, procedures, and medical decision making performed by me. Attending Attestation - Resident Resident Name: TrangTristen - ED Attending Attestation I have performed the following: I have examined & evaluated the patient, The case was reviewed & discussed with the resident, I agree w/resident's findings & plan, Exceptions are as noted - HPI HPI: 02/09/19 15:08 The patient is a 23 year old male with a past medical history significant for HTN, cocaine and heroin use and Hep C presents to the emergency department with an abscess to the left forearm. The patient presents with 1 week of redness and swelling to the left forearm. The patient reports initially the symptoms were associated with difficulty moving his hand. The patient reports earlier this week, he noticed some pustulant draining from the site, with improvement on range of motion. The patient reports since then, the redness and swelling had gone down. Allergies: resperidone. - Physicial Exam PE: 02/09/19 15:09 GENERAL: The patient is in no acute distress. NECK: Normal range of motion, supple, no nuchal rigidity LUNGS: Breath sounds equal, clear to auscultation bilaterally. No wheezes, and no crackles. HEART: Regular rate and rhythm, normal S1 and S2 without murmur, rub or gallop. EXTREMITIES: +left forearm: area of cellulitis, warm, erythematous, swollen, no limitation in the hand movement, sensation intact. Normal range of motion, no other edema. NEUROLOGICAL: Cranial nerves II through XII grossly intact. Normal speech. No focal neurological deficits. SKIN: Warm, Dry, normal turgor, no rashes or lesions noted. - Medical Decision Making 02/09/19 18:53 Davy is a RHD M who presents to the ER with a complaint of left forearm cellulitis Pt s/p injecting cocaine to the left forearm He noted swelling, erythema and pain He states "THIS HAPPENS when you inject cocaine and miss the vein" After that, pt noted that when he tried to inject in the same area again, he withdrew purulent material No fevers or chills Pt states his happened 1 week ago He actually thinks the swelling has improved [facility] Wound ultrasounded by Dr Smith and Chastity Discrete abscess seen NO foreign body seen This was incised and drained by Dr Smith and Chastity Pt unwilling to stay in the hospital [facility] per patient 02/09/19 18:56 Laboratory Tests 02/09/19 02/09/19 14:40 14:40 WBC 6.0 Hgb 12.7 Hct 37.8 Plt Count 410 D BUN 7.9 Creatinine 0.6 02/09/19 18:57 Clinical impression: forearm abscess, initial presentation Cellulitis, initial presentation 02/11/19 10:47
== END 2019-02-09 15:59 | disposition home or self-care (01) ==
LOC: JER 13:00
PROC: 0J9H0ZZ Drainage of Left Lower Arm Subcutaneous Tissue and Fascia, Open Approach (ICD-10-PCS; principal; 2019-02-09)
PROC: BH47ZZZ Ultrasonography of Upper Extremity (ICD-10-PCS; 2019-02-09)
DX: L02.414 Cutaneous abscess of left upper limb (principal); L03.114 Cellulitis of left upper limb; I10 Essential (primary) hypertension; B18.2 Chronic viral hepatitis C; F11.10 Opioid abuse, uncomplicated; F14.10 Cocaine abuse, uncomplicated
CPT/HCPCS: 10060; 36415; 76999; 80053; 85025; 87070; 87077; 87186; 87205; 99281-25

== ENCOUNTER 2019-07-23 17:30 | Inpatient (IN) | payer OTHER ==
[2019-07-23 19:54] VITALS: BMI 35.3
--- NOTE | 2019-07-23 21:38 | HP ---
COWS - Scale Resting Pulse: 0= [place] 80 or Below Sweatin= Chills/Flushing Restless Observation: 1= Difficult to Sit Still Pupil Size: 0= Normal to Room Light Bone or Joint Aches: 2= Severe Diffuse Aches Runny Nose/ Eye Tearin= Nasal Congestion GI Upset > 30mins: 1= Stomach Cramp Tremor Observation: 0= None Yawning Observation: 0= None Anxiety or Irritability: 2=Irritable/Anxious Goose Flesh Skin: 0=Smooth Skin COWS Score: 8 CIWA Score - Admission Criteria OASAS Guidelines: Admission for Medically Managed Detox: Requires at least one of the followin. CIWA greater than 12 2. Seizures within the past 24 hours 3. Delirium tremens within the past 24 hours 4. Hallucinations within the past 24 hours 5. Acute intervention needed for co occurring medical disorder 6. Acute intervention needed for co occurring psychiatric disorder 7. Severe withdrawal that cannot be handled at a lower level of care (continued vomiting, continued diarrhea, abnormal vital signs) requiring intravenous medication and/or fluids 8. Admitting History and Physical - Smoking History Smoking history: Current every day smoker Have you smoked in the past 12 months: Yes Aproximately how many cigarettes per day: 20 - Alcohol/Substance Use Hx Alcohol Use: No Admission ROS [facility] Allergies/Adverse Reactions: Allergies Allergy/AdvReac Type Severity Reaction Status Date / Time risperidone [From Risperdal] Allergy Severe Difficulty Verified 07/23/19 19:38 Breathing History of Present Illness: Patient Name: Davy Kirk Date: 1995 Address: [place] [address] Sex: Male Rx Written Rx Dispensed Drug Quantity Days Supply Prescriber Name 12/13/2018 12/14/2018 lorazepam 2 mg tablet 8 2 Pio Che (BHAVNA) 08/30/2018 08/31/2018 chlordiazepoxide 25 mg capsule 8 2 Pio Guadalupe (BHAVNA) 08/01/2018 08/02/2018 lorazepam 2 mg tablet 8 2 Pio Che (BHAVNA) * - Drugs marked with an asterisk are compound drugs. If the compound drug is made up of more than one controlled substance, then each controlled substance will be a separate row in the table. pt here requesting detox from heroin use , reports > 1 bundle /day iv x 3- 4 years, latest use this afternoon . on MMTP Promesa > 1 year , stopped a few months ago when he went to [place] , MDD 140 mg , and then @ [facility] 80 mg until April cocaine : 1 gr/day iv , needles from the exchange , denies sharing , + re- using , denies abscess / od , denies sobriety . cannabis - daily fentanyl - daily mtd - reports illicit use bzo - xanax admits to use intermittently every other day etoh- reports occasional use denies other illicits tobacco : 1 ppd pmhx :htn , asthma Psych : depression , denies SI / HI This report was requested by: Marina Diop | Reference #: [id number] Others' Prescriptions Patient Name: Davy Kirk Date: 1995 Address: [address] [facility] [address] Sex: Male Rx Written Rx Dispensed Drug Quantity Days Supply Prescriber Name 12/13/2018 12/14/2018 lorazepam 2 mg tablet 8 2 Pio Che (BHAVNA) 08/30/2018 08/31/2018 chlordiazepoxide 25 mg capsule 8 2 Pio Guadalupe (BHAVNA) 08/01/2018 08/02/2018 lorazepam 2 mg tablet 8 2 Pio Che (BHAVNA) * - Drugs marked with an asterisk are compound drugs. If the compound drug is made up of more than one controlled substance, then each controlled substance will be a separate row in the table. Exam Limitations: Clinical Condition - Ebola screening Have you traveled outside of the country in the last 21 days: No (N) Have you had contact with anyone from an Ebola affected area: No Do you have a fever: No - Review of Systems Constitutional: See HPI EENT: reports: Other (had glasses) Respiratory: reports: No Symptoms reported Cardiac: reports: No Symptoms Reported GI: reports: See HPI, Constipated : reports: No Symptoms Reported Musculoskeletal: reports: See HPI Integumentary: reports: See HPI, Other (sindhu feet redness 2/2 wearing shoes and sweating " for weeks ") Neuro: reports: See HPI Endocrine: reports: No Symptoms Reported Hematology: reports: No Symptoms Reported Psychiatric: reports: Orientated x3, Agitated, Anxious Patient History - Patient Medical History Hx Anemia: No Hx Asthma: Yes (Albuterol IH) Hx Chronic Obstructive Pulmonary Disease (COPD): No Hx Cancer: No Hx Cardiac Disorders: No Hx Congestive Heart Failure: No Hx Hypertension: Yes Hx Hypercholesterolemia: No Hx Pacemaker: No HX Cerebrovascular Accident: No Hx Seizures: No Hx Diabetes: No Hx Gastrointestinal Disorders: No Hx Liver Disease: Yes (hep C no tx ) Hx Genitourinary Disorders: No Hx Sexually Transmitted Disorders: No Hx Renal Disease (ESRD): No Hx Thyroid Disease: No Hx Human Immunodeficiency Virus (HIV): No (Negative 2017) Hx Hepatitis C: Yes (not treated) Hx Depression: Yes (with anxiety - hospitalized [facility] Aug 2018) Hx Suicide Attempt: No Hx Bipolar Disorder: Yes (on meds) Hx Schizophrenia: Yes - Patient Surgical History Past Surgical History: No Hx Neurologic Surgery: No Hx Cataract Extraction: No Hx Cardiac Surgery: No Hx Lung Surgery: No Hx Breast Surgery: No Hx Breast Biopsy: No Hx Abdominal Surgery: No Hx Appendectomy: No Hx Cholecystectomy: No Hx Genitourinary Surgery: No Hx Section: No Hx Orthopedic Surgery: No Anesthesia Reaction: No - PPD History Date: 02/11/19 Results: NEGATIVE - Smoking Cessation Smoking history: Current every day smoker Have you smoked in the past 12 months: Yes Aproximately how many cigarettes per day: 20 Hx Chewing Tobacco Use: No Initiated information on smoking cessation: Yes 'Breaking Loose' booklet given: 07/23/19 - Substances abused Heroin Substance route: Injection Frequency: Daily Amount used: 10 bags Age of first use: 19 Date of last use: 07/23/19 Cocaine Substance route: Injection Frequency: Daily Amount used: 100$/day Age of first use: 17 Date of last use: 07/23/19 None Other (specify): speedball Substance route: Injection Frequency: Daily Amount used: 1 bundle Age of first use: 16 Date of last use: 07/23/19 Alprazolam (Xanax) Substance route: Oral Frequency: 1-2 times per week Amount used: 2 mg Age of first use: 19 Date of last use: 07/23/19 Other Other (specify): fentanyl Substance route: Injection Frequency: Daily Amount used: 1 bundle Age of first use: 23 Date of last use: 07/23/19 Alcohol Substance route: Oral Frequency: 3-6 times per week Amount used: 1 small bottle Fireball Age of first use: 16 Date of last use: 07/23/19 Admission Physical Exam BHS - Vital Signs Vital Signs: Vital Signs - 24 hr 07/23/19 19:37 Temperature 97.2 F L Pulse Rate 75 Respiratory 16 Rate Blood Pressure 134/69 - Physical General Appearance: Yes: Disheveled, Anxious HEENTM: Yes: EOMI, Hearing grossly Normal, Normocephalic Respiratory: Yes: Lungs Clear, Normal Breath Sounds, No Respiratory Distress, No Accessory Muscle Use Neck: Yes: No masses,lesions,Nodules, Trachea in good position Cardiology: Yes: Regular Rhythm, Regular Rate, S1, S2 Abdominal: Yes: Non Tender, Soft Back: Yes: Normal Inspection Musculoskeletal: Yes: Gait Steady Extremities: Yes: Erythema (R LE), Other (sindhu feet edema / erythema superficial excoriations ,) Neurological: Yes: Alert, Motor Strength 5/5, Normal Mood/Affect Integumentary: Yes: Warm, Track Aburto (sindhu UE / LE), Other (R LE edema , erythema to mid-calf neg Homans) - Addiitonal Findings: pt declined transfer to ER ,refusal of tx signed . Nursing instructions to monitor R LE edema entered. - Diagnostic (1) Nicotine dependence Current Visit: Yes Status: Chronic Qualifiers: Nicotine product type: cigarettes Substance use status: uncomplicated Qualified Code(s): F17.210 - Nicotine dependence, cigarettes, uncomplicated (2) Opioid dependence, uncomplicated Current Visit: No Status: Chronic (3) Cannabis dependence Current Visit: Yes Status: Chronic (4) Cocaine dependence Current Visit: Yes Status: Chronic Qualifiers: Substance use status: uncomplicated Qualified Code(s): F14.20 - Cocaine dependence, uncomplicated Breathalyzer - Breathalyzer Breathalyzer: 0 Urine Drug Screen - Test Device Lot number: [id number] Expiration date: 10/22/20 - Control Is test valid?: Yes - Results Drug screen NEGATIVE: No Urine drug screen results: THC-Marijuana, KAJAL-Cocaine, FEN-Fentanyl, MOP-Opiates , BZO-Benzodiazepines Inpatient Rehab Admission - Rehab Decision to Admit Inpatient rehab admission?: No
[2019-07-23] MEDS ORDERED: ALBUTEROL SO4 8 GM HFA INHALER IH PRN (22:10)
[2019-07-23] MEDS ORDERED: ACETAMINOPHEN 325 MG TABLET (FP) PO PRN ×2 (22:11)
[2019-07-23] MEDS ORDERED: MENTHOL/PHENOL 1 EACH UD MM PRN (22:11)
[2019-07-23] MEDS ORDERED: MAG HYDROX/AL HYDROX/SIMETH 30 ML UNIT-DOSE CUP PO PRN (22:11)
[2019-07-23] MEDS ORDERED: MAGNESIUM HYDROX 2400MG/30ML ORAL SUSPENSION 30 ML CUP PO PRN (22:11)
[2019-07-23] MEDS ORDERED: MELATONIN 5 MG TABLETS PO PRN (22:11)
[2019-07-23] MEDS ORDERED: IBUPROFEN 400 MG TABLET (FP) PO PRN (22:11)
[2019-07-23] MEDS ORDERED: MAGNESIUM CITRATE 300 ML BOTTLE PO PRN (22:11)
[2019-07-23] MEDS ORDERED: BISMUTH SUBSALICYLATE 524 MG/30 ML UD PO PRN (22:11)
[2019-07-23] MEDS ORDERED: METHOCARBAMOL 500 MG TABLET PO PRN (22:11)
[2019-07-23] MEDS ORDERED: METHADONE HCL 10 MG TABLET (FOR DETOX USE ONLY) PO ONE (22:40)
[2019-07-23] MEDS ORDERED: cloNIDine HCL 0.1 MG TABLET PO PRN (22:40)
[2019-07-23] MEDS: BACITRACIN/POLYMYXIN B SULFATE 15 GM TUBE TP SCH (23:27)
[2019-07-24] MEDS ORDERED: METHADONE HCL 10 MG TABLET (FOR DETOX USE ONLY) ONE (08:24)
[2019-07-24] MEDS ORDERED: METHADONE HCL 5 MG TABLET (FOR DETOX USE ONLY) ONE (08:25)
[2019-07-24] MEDS ORDERED: METHADONE (DETOX) 20 MG, METHADONE (DETOX) 5 MG PO ONE (10:00)
[2019-07-24] MEDS: BACITRACIN/POLYMYXIN B SULFATE 15 GM TUBE TP SCH ×2 (10:14→21:40)
[2019-07-24] MEDS: PRENATAL VITAMINS W/ FOLIC ACID TABLET (FP) PO SCH (10:14)
[2019-07-24 10:55] LABS: ALBUMIN 3.2 g/dl (3.4-5.0); BILIRUBIN,TOTAL 0.3 mg/dL (0.2-1); BLOOD UREA NITROGEN 13.3 mg/dL (7-18); CALCIUM 8.7 mg/dL (8.5-10.1); CREATININE 0.5 mg/dL (0.55-1.3); HEMATOCRIT 38.2 % (35.4-49); HEMOGLOBIN 12.3 GM/dL (11.7-16.9); MCH 28.2 pg (25.7-33.7); MCHC 32.2 g/dl (32.0-35.9); MEAN CELL VOLUME 87.4 fl (80-96); MEAN PLT VOLUME 8.6 fl (7.5-11.1); PLATELET COUNT 296 K/MM3 (134-434); POTASSIUM 4.2 mmol/L (3.5-5.1); RBC 4.37 M/mm3 (4.00-5.60); RDW 14.5 % (11.9-15.9); TOT PROT 6.6 g/dl (6.4-8.2); WHITE BLOOD COUNT 4.6 K/mm3 (4.0-10.0)
--- NOTE | 2019-07-24 12:04 | CONSULT ---
[facility] Psychiatric Consult - Data Date of interview: 07/24/19 Admission source: [facility] Identifying data: Readmission to [facility] for this 24 y/o male, self- referred for detoxification (PASQUALE issues : heroin, cocaine, xanax, nicotine). Interviewed at [address] [place] [address]. Patient is single, no children, homeless, unemployed and deprived of any source of income. Substance Abuse History: Discussed in session. Details in current [facility] report as follows : Smoking history: Current every day smoker. Have you smoked in the past 12 months: Yes. Aproximately how many cigarettes per day: 20. Hx Chewing Tobacco Use: No. Initiated information on smoking cessation: Yes. 'Breaking Loose' booklet given: 07/23/19. - Substances abused. Heroin. Substance route: Injection. Frequency: Daily. Amount used: 10 bags. Age of first use: 19. Date of last use: 07/23/19. Cocaine. Substance route: Injection. Frequency: Daily. Amount used: 100$/day. Age of first use: 17. Date of last use: 07/23/19. None. Other (specify): speedball. Substance route: Injection. Frequency: Daily. Amount used: 1 bundle. Age of first use: 16. Date of last use: 07/23/19. Alprazolam (Xanax). Substance route: Oral. Frequency: 1-2 times per week. Amount used: 2 mg. Age of first use: 19. Date of last use: 07/23/19. Other. Other (specify): fentanyl. Substance route: Injection. Frequency: Daily. Amount used: 1 bundle. Age of first use: 23. Date of last use: 07/23/19. Alcohol. Substance route: Oral. Frequency: 3- 6 times per week. Amount used: 1 small bottle Fireball. Age of first use: 16. Date of last use: 07/23/19 Medical History: Remarkable for hepatitis C, obesity and hypertension. Psychiatric History: First contact with Psychiatry : 2011. Patient got diagnosed with Bipolar II Disorder. Mr Shukla endorses a history of two psychiatric hospitalizations (only [facility]; none in [facility]). Admits to past maintenance with seroquel XR 150 mg/bid + paxil 40 mg/day + depakote 250 mg/day. Not taken for several weeks. Patient endorses past psychiatric OPD care at [facility] (no shows). Denies history of suicide attempts. Physical/Sexual Abuse/Trauma History: Not discussed. Patient declines. Additional Comment: Urine drug screen results: THC-Marijuana, KAJAL-Cocaine, FEN- Fentanyl, MOP-Opiates, BZO-Benzodiazepines. Noted. Mental Status Exam - Mental Status Exam Alert and Oriented to: Time, Place, Person Cognitive Function: Good Patient Appearance: Well Groomed Mood: Nervous, Withdrawn, Irritable Affect: Mood Congruent, Constricted Patient Behavior: Fatigued, Cooperative Speech Pattern: Clear Voice Loudness: Normal Thought Process: Intact, Goal Oriented Thought Disorder: Not Present Hallucinations: Denies Suicidal Ideation: Denies Homicidal Ideation: Denies Insight/Judgement: Poor Sleep: Poorly, Difficulty falling asleep (wants seroquel) Appetite: Good Muscle strength/Tone: Normal Gait/Station: Normal Psychiatric Findings - Problem List ([place] 1, 2,3) (1) Opioid dependence, uncomplicated Current Visit: Yes Status: Chronic (2) Sedative, hypnotic or anxiolytic dependence, uncomplicated Current Visit: Yes Status: Chronic (3) Cannabis dependence Current Visit: Yes Status: Chronic (4) Cocaine dependence Current Visit: Yes Status: Chronic Qualifiers: Substance use status: uncomplicated Qualified Code(s): F14.20 - Cocaine dependence, uncomplicated (5) Nicotine dependence Current Visit: Yes Status: Chronic Qualifiers: Nicotine product type: cigarettes Substance use status: uncomplicated Qualified Code(s): F17.210 - Nicotine dependence, cigarettes, uncomplicated (6) Substance induced mood disorder Current Visit: Yes Status: Chronic (7) History of bipolar disorder Current Visit: Yes Status: Chronic (8) Insomnia Current Visit: Yes Status: Chronic (9) Non-compliance Current Visit: Yes Status: Chronic - Initial Treatment Plan Initial Treatment Plan: Psychoeducation. Sleep hygiene. Detoxification. Seroquel 100 mg po hs (patient's request). Side effects/benefits discussed with the patient. Gave verbal consent to MD. Barajas.
--- NOTE | 2019-07-24 12:51 | PN ---
BHS COWS - Scale Resting Pulse: 0= [place] 80 or Below Sweatin= Beads of Sweat on Face Restless Observation: 1= Difficult to Sit Still Pupil Size: 0= Normal to Room Light Bone or Joint Aches: 1= Mild Discomfort Runny Nose/ Eye Tearin= None GI Upset > 30mins: 0= None Tremor Observation of Outstretched Hands: 0= None Yawning Observation: 1= 1-2x During Session Anxiety or Irritability: 1=Feels Anxious/Irritable Goose Flesh Skin: 0=Smooth Skin COWS Score: 7 BHS Progress Note (SOAP) Subjective: c/o muscle aches, anxiety, and sweats. Objective: 07/24/19 12:50 Vital Signs 07/24/19 07/24/19 07/24/19 06:36 06:40 09:30 Temperature 98.5 F 99.0 F Pulse Rate 70 70 Respiratory 18 18 18 Rate Blood Pressure 121/70 108/59 L Laboratory Last Values WBC 4.6 K/mm3 (4.0-10.0) 07/24/19 07:50 RBC 4.37 M/mm3 (4.00-5.60) 07/24/19 07:50 Hgb 12.3 GM/dL (11.7-16.9) 07/24/19 07:50 Hct 38.2 % (35.4-49) 07/24/19 07:50 MCV 87.4 fl (80-96) 07/24/19 07:50 MCH 28.2 pg (25.7-33.7) 07/24/19 07:50 MCHC 32.2 g/dl (32.0-35.9) 07/24/19 07:50 RDW 14.5 % (11.9-15.9) 07/24/19 07:50 Plt Count 296 K/MM3 (134-434) D 07/24/19 07:50 MPV 8.6 fl (7.5-11.1) D 07/24/19 07:50 Sodium 138 mmol/L (136-145) 07/24/19 07:50 Potassium 4.2 mmol/L (3.5-5.1) 07/24/19 07:50 Chloride 105 mmol/L (98-107) 07/24/19 07:50 Carbon Dioxide 29 mmol/L (21-32) 07/24/19 07:50 Anion Gap 4 MMOL/L (8-16) L 07/24/19 07:50 BUN 13.3 mg/dL (7-18) 07/24/19 07:50 Creatinine 0.5 mg/dL (0.55-1.3) L 07/24/19 07:50 Est GFR (CKD-EPI)AfAm 177.03 07/24/19 07:50 Est GFR (CKD-EPI)NonAf 152.75 07/24/19 07:50 Random Glucose 70 mg/dL (74-106) L 07/24/19 07:50 Calcium 8.7 mg/dL (8.5-10.1) 07/24/19 07:50 Total Bilirubin 0.3 mg/dL (0.2-1) 07/24/19 07:50 AST 37 U/L (15-37) 07/24/19 07:50 ALT 72 U/L (13-61) H 07/24/19 07:50 Alkaline Phosphatase 95 U/L (45-117) 07/24/19 07:50 Total Protein 6.6 g/dl (6.4-8.2) 07/24/19 07:50 Albumin 3.2 g/dl (3.4-5.0) L 07/24/19 07:50 Labs noted. Assessment: 07/24/19 12:50 AOX3, in no acute respiratory distress. Full ROM, ambulating in the unit. withdrawal symptoms. Plan: continue detox.
[2019-07-24] MEDS: clonazePAM 0.5 MG TABLET PO PRN (21:39)
[2019-07-24] MEDS: QUEtiapine FUMARATE 100 MG TABLET (FP) PO SCH (21:39)
[2019-07-24] MEDS: THIAMINE HCL 100 MG TABLET (FP) PO SCH (21:40)
[2019-07-24] MEDS ORDERED: NICOTINE POLACRILEX 4 MG GUM BUC PRN (22:14)
[2019-07-25] MEDS ORDERED: METHADONE HCL 10 MG TABLET (FOR DETOX USE ONLY) PO ONE (10:00)
[2019-07-25] MEDS ORDERED: NICOTINE 21 MG/24 HOURS TOPICAL PATCH TD SCH (10:00)
[2019-07-25] MEDS: PRENATAL VITAMINS W/ FOLIC ACID TABLET (FP) PO SCH (10:20)
[2019-07-25] MEDS: BACITRACIN/POLYMYXIN B SULFATE 15 GM TUBE TP SCH ×2 (10:21→21:41)
--- NOTE | 2019-07-25 13:58 | PN ---
BHS COWS - Scale Resting Pulse: 0= [place] 80 or Below Sweatin= Chills/Flushing Restless Observation: 0= Sits Still Pupil Size: 0= Normal to Room Light Bone or Joint Aches: 1= Mild Discomfort Runny Nose/ Eye Tearin= None GI Upset > 30mins: 1= Stomach Cramp Tremor Observation of Outstretched Hands: 1= Tremor [place], Not Seen Yawning Observation: 0= None Anxiety or Irritability: 1=Feels Anxious/Irritable Goose Flesh Skin: 0=Smooth Skin COWS Score: 5 BHS Progress Note (SOAP) Subjective: 24 years old male admitted on 07/23/19 for opiate withdrawal sx management treated with methadone detox regimen patient throw food to staff contract for the safety of the staff and peers patient agrees to maintain therapeutic environment right leg edematous subsided ambulating without cane denies pain on ambulation report feeling better requests to be seen by a psychiatrist that he has long history of bipolar taking medication for bipolar psychiatric referral Objective: 07/25/19 14:00 Vital Signs Temperature 96 F L 07/25/19 13:20 Pulse Rate 69 07/25/19 13:20 Respiratory Rate 18 07/25/19 13:20 Blood Pressure 131/87 07/25/19 13:20 O2 Sat by Pulse Oximetry (%) Laboratory Last Values WBC 4.6 K/mm3 (4.0-10.0) 07/24/19 07:50 RBC 4.37 M/mm3 (4.00-5.60) 07/24/19 07:50 Hgb 12.3 GM/dL (11.7-16.9) 07/24/19 07:50 Hct 38.2 % (35.4-49) 07/24/19 07:50 MCV 87.4 fl (80-96) 07/24/19 07:50 MCH 28.2 pg (25.7-33.7) 07/24/19 07:50 MCHC 32.2 g/dl (32.0-35.9) 07/24/19 07:50 RDW 14.5 % (11.9-15.9) 07/24/19 07:50 Plt Count 296 K/MM3 (134-434) D 07/24/19 07:50 MPV 8.6 fl (7.5-11.1) D 07/24/19 07:50 Sodium 138 mmol/L (136-145) 07/24/19 07:50 Potassium 4.2 mmol/L (3.5-5.1) 07/24/19 07:50 Chloride 105 mmol/L (98-107) 07/24/19 07:50 Carbon Dioxide 29 mmol/L (21-32) 07/24/19 07:50 Anion Gap 4 MMOL/L (8-16) L 07/24/19 07:50 BUN 13.3 mg/dL (7-18) 07/24/19 07:50 Creatinine 0.5 mg/dL (0.55-1.3) L 07/24/19 07:50 Est GFR (CKD-EPI)AfAm 177.03 07/24/19 07:50 Est GFR (CKD-EPI)NonAf 152.75 07/24/19 07:50 Random Glucose 70 mg/dL (74-106) L 07/24/19 07:50 Calcium 8.7 mg/dL (8.5-10.1) 07/24/19 07:50 Total Bilirubin 0.3 mg/dL (0.2-1) 07/24/19 07:50 AST 37 U/L (15-37) 07/24/19 07:50 ALT 72 U/L (13-61) H 07/24/19 07:50 Alkaline Phosphatase 95 U/L (45-117) 07/24/19 07:50 Total Protein 6.6 g/dl (6.4-8.2) 07/24/19 07:50 Albumin 3.2 g/dl (3.4-5.0) L 07/24/19 07:50 lab noted Assessment: 07/25/19 14:01 opiate withdrawal sx Plan: continue methadone detox regimen
[2019-07-25] MEDS: QUEtiapine FUMARATE 100 MG TABLET (FP) PO SCH (21:42)
[2019-07-25] MEDS: clonazePAM 0.5 MG TABLET PO PRN (21:42)
[2019-07-25] MEDS: THIAMINE HCL 100 MG TABLET (FP) PO SCH (21:44)
[2019-07-26 09:08] VITALS: BP 107/68; PULSE 58; TEMP 96.3
[2019-07-26] MEDS ORDERED: METHADONE HCL 10 MG TABLET (FOR DETOX USE ONLY) ONE (09:20)
[2019-07-26] MEDS ORDERED: METHADONE HCL 5 MG TABLET (FOR DETOX USE ONLY) ONE (09:20)
[2019-07-26] MEDS ORDERED: METHADONE (DETOX) 10 MG, METHADONE (DETOX) 5 MG PO ONE (10:00)
--- NOTE | 2019-07-26 10:20 | DS ---
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 refuses exist physical examination - Physical Exam Results Vital Signs: Vital Signs Temperature 96.3 F L 07/26/19 09:07 Pulse Rate 58 L 07/26/19 09:07 Respiratory Rate 18 07/26/19 09:07 Blood Pressure 107/68 07/26/19 09:07 O2 Sat by Pulse Oximetry (%) Pertinent Admission Physical Exam Findings: opiate withdrawal sx Laboratory Last Values WBC 4.6 K/mm3 (4.0-10.0) 07/24/19 07:50 RBC 4.37 M/mm3 (4.00-5.60) 07/24/19 07:50 Hgb 12.3 GM/dL (11.7-16.9) 07/24/19 07:50 Hct 38.2 % (35.4-49) 07/24/19 07:50 MCV 87.4 fl (80-96) 07/24/19 07:50 MCH 28.2 pg (25.7-33.7) 07/24/19 07:50 MCHC 32.2 g/dl (32.0-35.9) 07/24/19 07:50 RDW 14.5 % (11.9-15.9) 07/24/19 07:50 Plt Count 296 K/MM3 (134-434) D 07/24/19 07:50 MPV 8.6 fl (7.5-11.1) D 07/24/19 07:50 Sodium 138 mmol/L (136-145) 07/24/19 07:50 Potassium 4.2 mmol/L (3.5-5.1) 07/24/19 07:50 Chloride 105 mmol/L (98-107) 07/24/19 07:50 Carbon Dioxide 29 mmol/L (21-32) 07/24/19 07:50 Anion Gap 4 MMOL/L (8-16) L 07/24/19 07:50 BUN 13.3 mg/dL (7-18) 07/24/19 07:50 Creatinine 0.5 mg/dL (0.55-1.3) L 07/24/19 07:50 Est GFR (CKD-EPI)AfAm 177.03 07/24/19 07:50 Est GFR (CKD-EPI)NonAf 152.75 07/24/19 07:50 Random Glucose 70 mg/dL (74-106) L 07/24/19 07:50 Calcium 8.7 mg/dL (8.5-10.1) 07/24/19 07:50 Total Bilirubin 0.3 mg/dL (0.2-1) 07/24/19 07:50 AST 37 U/L (15-37) 07/24/19 07:50 ALT 72 U/L (13-61) H 07/24/19 07:50 Alkaline Phosphatase 95 U/L (45-117) 07/24/19 07:50 Total Protein 6.6 g/dl (6.4-8.2) 07/24/19 07:50 Albumin 3.2 g/dl (3.4-5.0) L 07/24/19 07:50 lab noted - Treatment Hospital Course: Detox Protocol Followed, Responded well, Discharged Condition Good Patient has Accepted a Rehab Referral to: [facility] - Medication Discharge Medications: Ambulatory Orders Albuterol Sulfate Inhaler - [Ventolin HFA Inhaler -] 1 - 2 inh PO Q4H PRN #1 inhaler 09/28/18 Divalproex *ER* [Depakote *ER* -] 250 mg PO BID #60 tablet.sa 09/28/18 Paroxetine HCl [Paxil -] 40 mg PO DAILY #30 tablet 09/28/18 Quetiapine Fumarate "Xr" [Seroquel XR] 150 mg PO BID 10/24/18 Clindamycin [Cleocin -] 300 mg PO Q6HPO 10 Days #40 capsule 02/09/19 Naloxone HCl [Narcan] 4 mg NS ASDIR PRN #1 spray 07/25/19 - Diagnosis (1) Asthma Status: Chronic Qualifiers: Asthma severity: mild Asthma persistence: intermittent Asthma complication type: with status asthmaticus Qualified Code(s): J45.22 - Mild intermittent asthma with status asthmaticus (2) HTN (hypertension) Status: Chronic Qualifiers: Hypertension type: essential hypertension Qualified Code(s): I10 - Essential (primary) hypertension (3) Hepatitis C Status: Chronic Qualifiers: Viral hepatitis chronicity: chronic Hepatic coma status: without hepatic coma Qualified Code(s): B18.2 - Chronic viral hepatitis C (4) Nicotine dependence Status: Acute Qualifiers: Nicotine product type: cigarettes Substance use status: in withdrawal Qualified Code(s): F17.213 - Nicotine dependence, cigarettes, with withdrawal (5) Opioid dependence, uncomplicated Status: Acute (6) Substance induced mood disorder Status: Suspected - AMA Did Patient Leave Against Medical Advice: Yes
--- NOTE | 2019-07-26 12:02 | EKG ---
Test Reason : Blood Pressure : / mmHG Vent. Rate : 074 BPM Atrial Rate : 074 BPM P-R Int : 160 ms QRS Dur : 094 ms QT Int : 400 ms P-R-T Axes : 004 031 019 degrees QTc Int : 444 ms NORMAL SINUS RHYTHM NORMAL ECG WHEN COMPARED WITH ECG OF 09-FEB-2019 19:14, NO SIGNIFICANT CHANGE WAS FOUND Confirmed by SMITH GRAY MD ([id number]) on 07/26/2019 12:01:43 PM Referred By: DR WRIGHT Confirmed By:SMITH GRAY MD
[2019-07-27] MEDS ORDERED: METHADONE HCL 10 MG TABLET (FOR DETOX USE ONLY) PO ONE (10:00)
[2019-07-28] MEDS ORDERED: METHADONE HCL 5 MG TABLET (FOR DETOX USE ONLY) PO ONE (06:00)
== END 2019-07-26 10:08 | disposition left against medical advice (07) | DRG 770 ==
LOC: YASAS 17:30 → Y3N 22:11
PROVIDERS: ADMIT Allergy & Immunology; ATTEND Allergy & Immunology
PROC: HZ2ZZZZ Detoxification Services for Substance Abuse Treatment (ICD-10-PCS; principal; 2019-07-23)
DX: F11.23 Opioid dependence with withdrawal (principal); F13.20 Sedative, hypnotic or anxiolytic dependence, uncomplicated; F14.20 Cocaine dependence, uncomplicated; F12.20 Cannabis dependence, uncomplicated; F17.210 Nicotine dependence, cigarettes, uncomplicated; F19.24 Other psychoactive substance dependence with psychoactive substance-induced mood disorder; F42.9 Obsessive-compulsive disorder, unspecified; F31.9 Bipolar disorder, unspecified; I10 Essential (primary) hypertension; J45.22 Mild intermittent asthma with status asthmaticus; B18.2 Chronic viral hepatitis C; E66.9 Obesity, unspecified; Z68.35 Body mass index [BMI] 35.0-35.9, adult; R60.0 Localized edema; Z99.89 Dependence on other enabling machines and devices; Z88.8 Allergy status to other drugs, medicaments and biological substances
CPT/HCPCS: 36415; 80053; 85027; 86593; 93005; 93010; J0735

== ENCOUNTER 2022-02-06 09:32 | Inpatient (IN) | payer OTHER ==
[2022-02-06] MEDS ORDERED: ONDANSETRON *ODT* 4 MG TABLET SL PRN (10:36)
[2022-02-06] MEDS ORDERED: MAGNESIUM HYDROX 2400MG/30ML ORAL SUSPENSION 30 ML CUP PO PRN (10:36)
[2022-02-06] MEDS ORDERED: chlordiazePOXIDE HCL 25 MG CAPSULE PO PRN (10:36)
[2022-02-06] MEDS ORDERED: IBUPROFEN 400 MG TABLET (FP) PO PRN (10:36)
[2022-02-06] MEDS ORDERED: DICYCLOMINE HCL 10 MG CAPSULE PO PRN (10:36)
[2022-02-06] MEDS ORDERED: MAG HYDROX/AL HYDROX/SIMETH 30 ML UNIT-DOSE CUP PO PRN (10:36)
[2022-02-06] MEDS ORDERED: MAGNESIUM CITRATE 300 ML BOTTLE PO PRN (10:36)
[2022-02-06] MEDS ORDERED: ACETAMINOPHEN 325 MG TABLET (FP) PO PRN (10:36)
[2022-02-06] MEDS ORDERED: BISMUTH SUBSALICYLATE 262 MG/15 ML BTL PO PRN (10:36)
[2022-02-06] MEDS ORDERED: LOPERAMIDE HCL 2 MG CAPSULE PO PRN (10:36)
[2022-02-06] MEDS ORDERED: BENZOCAINE/MENTHOL (CHLORASEPTIC ) LOZENGE MM PRN (10:36)
[2022-02-06 11:33] VITALS: BMI 35.8
[2022-02-06] MEDS: PRENATAL VITAMINS W/ FOLIC ACID TABLET (FP) PO SCH (12:43)
[2022-02-06] MEDS: NICOTINE 14 MG/24 HOURS TOPICAL PATCH TD SCH (12:45)
[2022-02-06] MEDS: NICOTINE 10 MG CARTRIDGE (INHALER) IH PRN (14:04)
[2022-02-06] MEDS: hydrOXYzine PAMOATE 25 MG CAPSULE (FP) PO SCH ×3 (14:04→22:13)
[2022-02-06] MEDS: chlordiazePOXIDE HCL 25 MG CAPSULE PO SCH ×2 (18:00→22:13)
[2022-02-06] MEDS: IBUPROFEN 600 MG TABLET (FP) PO PRN (18:03)
[2022-02-06] MEDS: METHOCARBAMOL 500 MG TABLET PO PRN (18:04)
[2022-02-06] MEDS: MELATONIN 5 MG TABLETS PO SCH (22:13)
[2022-02-06] MEDS: THIAMINE HCL 100 MG TABLET (FP) PO SCH (22:13)
[2022-02-07] MEDS: chlordiazePOXIDE HCL 25 MG CAPSULE PO SCH ×4 (06:46→22:34)
[2022-02-07] MEDS: METHOCARBAMOL 500 MG TABLET PO PRN ×2 (06:46→18:33)
[2022-02-07] MEDS: hydrOXYzine PAMOATE 25 MG CAPSULE (FP) PO SCH ×5 (06:46→22:33)
[2022-02-07] MEDS: IBUPROFEN 600 MG TABLET (FP) PO PRN ×2 (06:47→18:32)
[2022-02-07] MEDS: methaDONE HCL 40 MG DISPERSABLE TABLET PO SCH (10:30)
[2022-02-07] MEDS: PRENATAL VITAMINS W/ FOLIC ACID TABLET (FP) PO SCH (10:33)
[2022-02-07] MEDS: ACETAMINOPHEN 325 MG TABLET (FP) PO PRN (10:33)
[2022-02-07] MEDS: NICOTINE 14 MG/24 HOURS TOPICAL PATCH TD SCH (10:34)
[2022-02-07 11:57] LABS: HEMATOCRIT 40.6 % (35.4-49); HEMOGLOBIN 13.5 GM/dL (11.7-16.9); MCH 28.7 pg (25.7-33.7); MCHC 33.1 g/dl (32.0-35.9); MEAN CELL VOLUME 86.6 fl (80-96); PLATELET COUNT 346 10^3/uL (134-434); RBC 4.69 M/mm3 (4.00-5.60); RDW 16.9 % (11.9-15.9); WHITE BLOOD COUNT 6.1 K/mm3 (4.0-10.0)
[2022-02-07 12:59] LABS: ALBUMIN 3.6 g/dl (3.4-5.0); BLOOD UREA NITROGEN 26.4 mg/dL (7-18); CALCIUM 8.9 mg/dL (8.5-10.1)
[2022-02-07 13:02] LABS: CREATININE 0.5 mg/dL (0.55-1.3)
[2022-02-07 13:03] LABS: TOT PROT 7.7 g/dl (6.4-8.2)
[2022-02-07 13:04] LABS: BILIRUBIN,TOTAL 0.5 mg/dL (0.2-1)
[2022-02-07] MEDS: THIAMINE HCL 100 MG TABLET (FP) PO SCH (22:34)
[2022-02-07] MEDS: MELATONIN 5 MG TABLETS PO SCH (22:36)
[2022-02-08] MEDS: methaDONE HCL 40 MG DISPERSABLE TABLET PO SCH (05:38)
[2022-02-08] MEDS: chlordiazePOXIDE HCL 25 MG CAPSULE PO SCH ×4 (05:38→22:06)
[2022-02-08] MEDS: IBUPROFEN 600 MG TABLET (FP) PO PRN ×3 (05:39→22:07)
[2022-02-08] MEDS: hydrOXYzine PAMOATE 25 MG CAPSULE (FP) PO SCH ×5 (05:39→22:06)
[2022-02-08] MEDS: METHOCARBAMOL 500 MG TABLET PO PRN (05:39)
[2022-02-08] MEDS: PRENATAL VITAMINS W/ FOLIC ACID TABLET (FP) PO SCH (10:20)
[2022-02-08] MEDS: NICOTINE 14 MG/24 HOURS TOPICAL PATCH TD SCH (10:21)
[2022-02-08] MEDS: ACETAMINOPHEN 325 MG TABLET (FP) PO PRN (10:22)
[2022-02-08] MEDS ORDERED: NICOTINE POLACRILEX 2 MG GUM BUC PRN (15:39)
[2022-02-08] MEDS: NICOTINE 10 MG CARTRIDGE (INHALER) IH PRN ×2 (15:41→19:44)
[2022-02-08] MEDS ORDERED: QUEtiapine FUMARATE 50 MG TABLET PO SCH (22:00)
[2022-02-08] MEDS: MELATONIN 5 MG TABLETS PO SCH (22:06)
[2022-02-08] MEDS: QUEtiapine FUMARATE 100 MG TABLET (FP) PO SCH (22:06)
[2022-02-08] MEDS: THIAMINE HCL 100 MG TABLET (FP) PO SCH (22:06)
[2022-02-08] MEDS: ALBUTEROL SO4 HFA INHALER IH PRN (22:07)
[2022-02-09] MEDS ORDERED: chlordiazePOXIDE HCL 10 MG CAPSULE PO PRN
[2022-02-09] MEDS: hydrOXYzine PAMOATE 25 MG CAPSULE (FP) PO SCH ×5 (05:56→22:39)
[2022-02-09] MEDS: methaDONE HCL 40 MG DISPERSABLE TABLET PO SCH (05:56)
[2022-02-09] MEDS: chlordiazePOXIDE HCL 10 MG CAPSULE PO SCH ×4 (05:56→22:40)
[2022-02-09] MEDS: METHOCARBAMOL 500 MG TABLET PO PRN (05:57)
[2022-02-09] MEDS: IBUPROFEN 600 MG TABLET (FP) PO PRN ×3 (05:57→22:38)
[2022-02-09] MEDS: PRENATAL VITAMINS W/ FOLIC ACID TABLET (FP) PO SCH (10:03)
[2022-02-09] MEDS: ALBUTEROL SO4 HFA INHALER IH PRN (18:00)
[2022-02-09] MEDS: ACETAMINOPHEN 325 MG TABLET (FP) PO PRN (18:00)
[2022-02-09] MEDS: NICOTINE 10 MG CARTRIDGE (INHALER) IH PRN (18:05)
[2022-02-09] MEDS: QUEtiapine FUMARATE 100 MG TABLET (FP) PO SCH (22:39)
[2022-02-09] MEDS: THIAMINE HCL 100 MG TABLET (FP) PO SCH (22:39)
[2022-02-09] MEDS: MELATONIN 5 MG TABLETS PO SCH (22:39)
[2022-02-10] MEDS ORDERED: chlordiazePOXIDE HCL 10 MG CAPSULE PO SCH (05:00)
[2022-02-10] MEDS: IBUPROFEN 600 MG TABLET (FP) PO PRN (06:04)
[2022-02-10] MEDS: hydrOXYzine PAMOATE 25 MG CAPSULE (FP) PO SCH ×2 (06:04→09:46)
[2022-02-10] MEDS: METHOCARBAMOL 500 MG TABLET PO PRN (06:04)
[2022-02-10] MEDS: methaDONE HCL 40 MG DISPERSABLE TABLET PO SCH (06:05)
[2022-02-10 06:35] VITALS: BP 109/61; PULSE 61; TEMP 97.3
[2022-02-10] MEDS: ALBUTEROL SO4 HFA INHALER IH PRN (09:46)
[2022-02-10] MEDS: PRENATAL VITAMINS W/ FOLIC ACID TABLET (FP) PO SCH (09:46)
[2022-02-11] MEDS ORDERED: chlordiazePOXIDE HCL 10 MG CAPSULE PO ONE (05:00)
== END 2022-02-10 10:23 | disposition home or self-care (01) | DRG 773 ==
LOC: YASAS 09:32 → Y3N 11:52
PROVIDERS: ADMIT Allergy & Immunology; ATTEND Surgery
PROC: HZ2ZZZZ Detoxification Services for Substance Abuse Treatment (ICD-10-PCS; principal; 2022-02-06)
DX: F10.230 Alcohol dependence with withdrawal, uncomplicated (principal); F11.20 Opioid dependence, uncomplicated; F14.20 Cocaine dependence, uncomplicated; F13.20 Sedative, hypnotic or anxiolytic dependence, uncomplicated; F12.20 Cannabis dependence, uncomplicated; F17.210 Nicotine dependence, cigarettes, uncomplicated; F19.282 Other psychoactive substance dependence with psychoactive substance-induced sleep disorder; F31.81 Bipolar II disorder; F19.24 Other psychoactive substance dependence with psychoactive substance-induced mood disorder; I10 Essential (primary) hypertension; J45.20 Mild intermittent asthma, uncomplicated; B18.2 Chronic viral hepatitis C; G47.00 Insomnia, unspecified; E66.9 Obesity, unspecified; Z68.35 Body mass index [BMI] 35.0-35.9, adult; Z88.8 Allergy status to other drugs, medicaments and biological substances; Z56.0 Unemployment, unspecified; Z59.00 Homelessness unspecified
CPT/HCPCS: 36415; 80053; 85027; 86780; 87811; 93005; 93010; C9803-CS; U0003; U0005

== ENCOUNTER 2022-04-18 17:04 | Inpatient (IN) | payer OTHER ==
[2022-04-18 22:35] VITALS: BMI 36.2
[2022-04-18] MEDS ORDERED: P-EPHED 60MG/TRIPROLIDI 2.5MG TABLET PO PRN (23:21)
[2022-04-18] MEDS ORDERED: MAG HYDROX/AL HYDROX/SIMETH 30 ML UNIT-DOSE CUP PO PRN (23:21)
[2022-04-18] MEDS ORDERED: BISMUTH SUBSALICYLATE 524 MG/30 ML PO PRN (23:21)
[2022-04-18] MEDS ORDERED: NALOXONE HCL (KLOXXADO) 8 MG SPRAY NS PRN (23:21)
[2022-04-18] MEDS ORDERED: LOPERAMIDE HCL 2 MG CAPSULE PO PRN (23:21)
[2022-04-18] MEDS ORDERED: MAGNESIUM HYDROX 2400MG/30ML ORAL SUSPENSION 30 ML CUP PO PRN (23:21)
[2022-04-18] MEDS ORDERED: ACETAMINOPHEN 325 MG TABLET (FP) PO PRN ×2 (23:21)
[2022-04-18] MEDS ORDERED: DICYCLOMINE HCL 10 MG CAPSULE PO PRN (23:21)
[2022-04-18] MEDS ORDERED: BENZOCAINE/MENTHOL (CHLORASEPTIC ) LOZENGE MM PRN (23:21)
[2022-04-18] MEDS ORDERED: MAGNESIUM CITRATE 300 ML BOTTLE PO PRN (23:21)
[2022-04-18] MEDS ORDERED: guaiFENesin 200 MG/10 ML 10 ML UNIT-DOSE CUPS PO PRN (23:21)
[2022-04-18] MEDS ORDERED: NICOTINE POLACRILEX 4 MG GUM BUC PRN (23:21)
[2022-04-18] MEDS ORDERED: ONDANSETRON *ODT* 4 MG TABLET SL PRN (23:21)
[2022-04-18] MEDS ORDERED: NALOXONE HCL 0.4 MG/ML VIAL IM PRN (23:21)
[2022-04-19] MEDS: CEPHALEXIN MONOHYDRATE 500 MG CAPSULE (UD) PO SCH ×5 (00:30→23:55)
[2022-04-19] MEDS ORDERED: methaDONE HCL 10 MG TABLET PO ONE (10:21)
[2022-04-19] MEDS ORDERED: NALOXONE (NARCAN) HCL 4 MG/0.1 ML SPRAY NS PRN (10:26)
[2022-04-19] MEDS ORDERED: ALBUTEROL SO4 HFA INHALER IH PRN (10:26)
[2022-04-19] MEDS ORDERED: methaDONE 40 MG, methaDONE 20 MG PO ONE (11:00)
[2022-04-19] MEDS: NICOTINE 21 MG/24 HOURS TOPICAL PATCH TD SCH (12:40)
[2022-04-19] MEDS: PRENATAL VITAMINS W/ FOLIC ACID TABLET (FP) PO SCH (12:40)
[2022-04-19] MEDS: hydrOXYzine PAMOATE 25 MG CAPSULE (FP) PO PRN ×2 (18:06→22:51)
[2022-04-19] MEDS: METHOCARBAMOL 500 MG TABLET PO PRN (18:06)
[2022-04-19] MEDS: IBUPROFEN 600 MG TABLET (FP) PO PRN (18:08)
[2022-04-19] MEDS: THIAMINE HCL 100 MG TABLET (FP) PO SCH (22:51)
[2022-04-19] MEDS: QUEtiapine FUMARATE 100 MG TABLET (FP) PO SCH (22:51)
[2022-04-19] MEDS: MELATONIN 5 MG TABLETS PO SCH (22:51)
[2022-04-20] MEDS: methaDONE 40 MG, methaDONE 20 MG PO SCH (05:15)
[2022-04-20] MEDS: METHOCARBAMOL 500 MG TABLET PO PRN ×3 (05:15→22:43)
[2022-04-20] MEDS: hydrOXYzine PAMOATE 25 MG CAPSULE (FP) PO PRN ×3 (05:15→22:40)
[2022-04-20] MEDS: CEPHALEXIN MONOHYDRATE 500 MG CAPSULE (UD) PO SCH ×4 (05:15→23:17)
[2022-04-20] MEDS ORDERED: methaDONE HCL 10 MG TABLET PO SCH (06:00)
[2022-04-20] MEDS: NICOTINE 21 MG/24 HOURS TOPICAL PATCH TD SCH (12:56)
[2022-04-20] MEDS: IBUPROFEN 600 MG TABLET (FP) PO PRN ×2 (12:57→22:43)
[2022-04-20] MEDS: PRENATAL VITAMINS W/ FOLIC ACID TABLET (FP) PO SCH (12:57)
[2022-04-20] MEDS: PARoxetine HCL 10 MG TABLET PO SCH (12:58)
[2022-04-20] MEDS: MELATONIN 5 MG TABLETS PO SCH (22:40)
[2022-04-20] MEDS: THIAMINE HCL 100 MG TABLET (FP) PO SCH (22:40)
[2022-04-20] MEDS: QUEtiapine FUMARATE 100 MG TABLET (FP) PO SCH (22:40)
[2022-04-21] MEDS: CEPHALEXIN MONOHYDRATE 500 MG CAPSULE (UD) PO SCH ×4 (06:00→23:15)
[2022-04-21] MEDS: METHOCARBAMOL 500 MG TABLET PO PRN ×2 (06:01→13:19)
[2022-04-21] MEDS: methaDONE 40 MG, methaDONE 20 MG PO SCH (06:01)
[2022-04-21] MEDS: IBUPROFEN 600 MG TABLET (FP) PO PRN (06:02)
[2022-04-21] MEDS: PRENATAL VITAMINS W/ FOLIC ACID TABLET (FP) PO SCH (10:08)
[2022-04-21] MEDS: PARoxetine HCL 10 MG TABLET PO SCH (10:08)
[2022-04-21] MEDS: hydrOXYzine PAMOATE 25 MG CAPSULE (FP) PO PRN ×2 (10:09→13:19)
[2022-04-21] MEDS: NICOTINE 21 MG/24 HOURS TOPICAL PATCH TD SCH (10:09)
[2022-04-21] MEDS: IBUPROFEN 400 MG TABLET (FP) PO PRN ×2 (13:19→18:12)
[2022-04-21] MEDS: THIAMINE HCL 100 MG TABLET (FP) PO SCH (22:14)
[2022-04-21] MEDS: QUEtiapine FUMARATE 100 MG TABLET (FP) PO SCH (22:14)
[2022-04-21] MEDS: MELATONIN 5 MG TABLETS PO SCH (23:15)
[2022-04-22] MEDS: methaDONE 40 MG, methaDONE 20 MG PO SCH (05:44)
[2022-04-22] MEDS: CEPHALEXIN MONOHYDRATE 500 MG CAPSULE (UD) PO SCH (05:44)
[2022-04-22 06:21] VITALS: TEMP 97.1
[2022-04-22 09:28] VITALS: BP 126/71; PULSE 69; RESP 20
== END 2022-04-22 11:25 | disposition other institution (70) | DRG 774 ==
LOC: YASAS 17:04 → Y6N 04-19 10:26 → UNDOADMIN 04-19 10:26
PROVIDERS: ADMIT Allergy & Immunology; ATTEND Surgery
PROC: HZ2ZZZZ Detoxification Services for Substance Abuse Treatment (ICD-10-PCS; principal; 2022-04-19)
DX: F10.230 Alcohol dependence with withdrawal, uncomplicated (principal); F14.20 Cocaine dependence, uncomplicated; F13.20 Sedative, hypnotic or anxiolytic dependence, uncomplicated; F12.20 Cannabis dependence, uncomplicated; F17.210 Nicotine dependence, cigarettes, uncomplicated; F19.282 Other psychoactive substance dependence with psychoactive substance-induced sleep disorder; F19.24 Other psychoactive substance dependence with psychoactive substance-induced mood disorder; F20.9 Schizophrenia, unspecified; F34.1 Dysthymic disorder; J45.20 Mild intermittent asthma, uncomplicated; L03.114 Cellulitis of left upper limb; Z86.59 Personal history of other mental and behavioral disorders; Z87.19 Personal history of other diseases of the digestive system; Z88.8 Allergy status to other drugs, medicaments and biological substances
CPT/HCPCS: 93005; 93010; C9803-CS; U0003; U0005

== ENCOUNTER 2022-05-28 16:25 | Inpatient (IN) | payer OTHER ==
[2022-05-29 06:40] VITALS: BMI 40.6
[2022-05-29] MEDS ORDERED: ACETAMINOPHEN 325 MG TABLET (FP) PO ONE (06:46)
[2022-05-29] MEDS ORDERED: ACETAMINOPHEN 325 MG TABLET (FP) ONE (06:55)
[2022-05-29] MEDS ORDERED: BISMUTH SUBSALICYLATE 262 MG/15 ML BTL PO PRN (10:07)
[2022-05-29] MEDS ORDERED: MAGNESIUM HYDROX 2400MG/30ML ORAL SUSPENSION 30 ML CUP PO PRN (10:07)
[2022-05-29] MEDS ORDERED: ACETAMINOPHEN 325 MG TABLET (FP) PO PRN ×2 (10:07)
[2022-05-29] MEDS ORDERED: DICYCLOMINE HCL 10 MG CAPSULE PO PRN (10:07)
[2022-05-29] MEDS ORDERED: MAGNESIUM CITRATE 300 ML BOTTLE PO PRN (10:07)
[2022-05-29] MEDS ORDERED: ONDANSETRON *ODT* 4 MG TABLET SL PRN (10:07)
[2022-05-29] MEDS ORDERED: chlordiazePOXIDE HCL 25 MG CAPSULE PO PRN (10:07)
[2022-05-29] MEDS ORDERED: MAG HYDROX/AL HYDROX/SIMETH 30 ML UNIT-DOSE CUP PO PRN (10:07)
[2022-05-29] MEDS ORDERED: BENZOCAINE/MENTHOL (CHLORASEPTIC ) LOZENGE MM PRN (10:07)
[2022-05-29] MEDS ORDERED: LOPERAMIDE HCL 2 MG CAPSULE PO PRN (10:07)
[2022-05-29] MEDS ORDERED: NALOXONE HCL (KLOXXADO) 8 MG SPRAY NS PRN (10:07)
[2022-05-29] MEDS ORDERED: chlordiazePOXIDE HCL 25 MG CAPSULE ONE (10:56)
[2022-05-29] MEDS ORDERED: IBUPROFEN 400 MG TABLET (FP) PO ONE (10:58)
[2022-05-29] MEDS ORDERED: ONDANSETRON *ODT* 4 MG TABLET ONE (10:58)
[2022-05-29] MEDS: chlordiazePOXIDE HCL 25 MG CAPSULE PO SCH ×3 (11:04→22:15)
[2022-05-29] MEDS: IBUPROFEN 400 MG TABLET (FP) PO PRN (11:06)
[2022-05-29] MEDS: PRENATAL VITAMINS W/ FOLIC ACID TABLET (FP) PO SCH (11:27)
[2022-05-29] MEDS ORDERED: methaDONE HCL 10 MG TABLET PO SCH (12:30)
[2022-05-29] MEDS: methaDONE 80 MG, methaDONE 10 MG PO SCH (12:45)
[2022-05-29] MEDS: AMOXICILLIN 500 MG CAPSULE (FP) PO SCH ×2 (12:46→22:16)
[2022-05-29] MEDS: ENALAPRIL MALEATE 10 MG TABLET PO SCH (12:47)
[2022-05-29] MEDS: DIVALPROEX SODIUM 500 MG TABLET E.C. PO SCH ×2 (12:47→22:15)
[2022-05-29] MEDS: IBUPROFEN 600 MG TABLET (FP) PO PRN (13:37)
[2022-05-29] MEDS ORDERED: hydrOXYzine PAMOATE 25 MG CAPSULE (FP) PO SCH (14:00)
[2022-05-29 15:08] LABS: ALBUMIN 3.9 g/dl (3.4-5.0); CALCIUM 9.2 mg/dL (8.5-10.1)
[2022-05-29 15:09] LABS: BLOOD UREA NITROGEN 18.1 mg/dL (7-18)
[2022-05-29 15:11] LABS: CREATININE 0.6 mg/dL (0.55-1.3); HEMATOCRIT 39.5 % (35.4-49); HEMOGLOBIN 12.8 GM/dL (11.7-16.9); MCHC 32.3 g/dl (32.0-35.9); MEAN CELL VOLUME 86.7 fl (80-96); MEAN PLT VOLUME 7.6 fl (7.5-11.1); PLATELET COUNT 414 10^3/uL (134-434); RBC 4.56 M/mm3 (4.00-5.60); RDW 14.7 % (11.9-15.9); WHITE BLOOD COUNT 5.4 K/mm3 (4.0-10.0)
[2022-05-29 15:13] LABS: BILIRUBIN,TOTAL 0.3 mg/dL (0.2-1)
[2022-05-29] MEDS: THIAMINE HCL 100 MG TABLET (FP) PO SCH (22:15)
[2022-05-29] MEDS: MELATONIN 5 MG TABLETS PO SCH (22:15)
[2022-05-30] MEDS: chlordiazePOXIDE HCL 25 MG CAPSULE PO SCH ×4 (05:48→22:16)
[2022-05-30] MEDS: methaDONE 80 MG, methaDONE 10 MG PO SCH (05:48)
[2022-05-30] MEDS: IBUPROFEN 600 MG TABLET (FP) PO PRN ×2 (05:50→19:12)
[2022-05-30] MEDS: AMOXICILLIN 500 MG CAPSULE (FP) PO SCH ×2 (10:55→22:16)
[2022-05-30] MEDS: DIVALPROEX SODIUM 250 MG TABLET E.C. PO SCH ×2 (10:55→22:16)
[2022-05-30] MEDS: PRENATAL VITAMINS W/ FOLIC ACID TABLET (FP) PO SCH (10:55)
[2022-05-30] MEDS: ENALAPRIL MALEATE 10 MG TABLET PO SCH (10:55)
[2022-05-30] MEDS: IBUPROFEN 400 MG TABLET (FP) PO PRN (11:02)
[2022-05-30] MEDS: NICOTINE 10 MG CARTRIDGE (INHALER) IH PRN (11:03)
[2022-05-30] MEDS: ALBUTEROL SO4 HFA INHALER IH PRN ×2 (13:18→22:18)
[2022-05-30] MEDS: QUEtiapine FUMARATE 50 MG TABLET PO SCH (22:16)
[2022-05-30] MEDS: MELATONIN 5 MG TABLETS PO SCH (22:16)
[2022-05-30] MEDS: THIAMINE HCL 100 MG TABLET (FP) PO SCH (22:16)
[2022-05-30] MEDS: MUPIROCIN CA 2% TOPICAL CREAM 15 GM TUBE TP SCH (22:19)
[2022-05-31] MEDS: methaDONE 80 MG, methaDONE 10 MG PO SCH (06:17)
[2022-05-31] MEDS: chlordiazePOXIDE HCL 25 MG CAPSULE PO SCH ×4 (06:18→22:21)
[2022-05-31] MEDS: IBUPROFEN 400 MG TABLET (FP) PO PRN ×2 (06:21→15:05)
[2022-05-31] MEDS: AMOXICILLIN 500 MG CAPSULE (FP) PO SCH ×2 (10:12→22:20)
[2022-05-31] MEDS: DIVALPROEX SODIUM 250 MG TABLET E.C. PO SCH ×2 (10:13→22:21)
[2022-05-31] MEDS: MUPIROCIN CA 2% TOPICAL CREAM 15 GM TUBE TP SCH ×2 (10:14→22:22)
[2022-05-31] MEDS: PRENATAL VITAMINS W/ FOLIC ACID TABLET (FP) PO SCH (10:14)
[2022-05-31] MEDS: ENALAPRIL MALEATE 10 MG TABLET PO SCH (10:15)
[2022-05-31] MEDS: IBUPROFEN 600 MG TABLET (FP) PO PRN ×2 (10:15→18:09)
[2022-05-31] MEDS: METHOCARBAMOL 500 MG TABLET PO PRN (17:51)
[2022-05-31] MEDS: MELATONIN 5 MG TABLETS PO SCH (22:21)
[2022-05-31] MEDS: QUEtiapine FUMARATE 50 MG TABLET PO SCH (22:21)
[2022-05-31] MEDS: THIAMINE HCL 100 MG TABLET (FP) PO SCH (22:21)
[2022-05-31] MEDS: ALBUTEROL SO4 HFA INHALER IH PRN (22:22)
[2022-06-01] MEDS ORDERED: chlordiazePOXIDE HCL 10 MG CAPSULE PO PRN
[2022-06-01] MEDS: methaDONE 80 MG, methaDONE 10 MG PO SCH (05:52)
[2022-06-01] MEDS: chlordiazePOXIDE HCL 10 MG CAPSULE PO SCH ×4 (05:53→22:18)
[2022-06-01] MEDS: IBUPROFEN 400 MG TABLET (FP) PO PRN (05:55)
[2022-06-01] MEDS: DIVALPROEX SODIUM 250 MG TABLET E.C. PO SCH ×2 (10:44→22:15)
[2022-06-01] MEDS: AMOXICILLIN 500 MG CAPSULE (FP) PO SCH ×2 (10:44→22:16)
[2022-06-01] MEDS: ENALAPRIL MALEATE 10 MG TABLET PO SCH (10:44)
[2022-06-01] MEDS: PRENATAL VITAMINS W/ FOLIC ACID TABLET (FP) PO SCH (10:44)
[2022-06-01] MEDS: MUPIROCIN CA 2% TOPICAL CREAM 15 GM TUBE TP SCH ×2 (10:45→22:17)
[2022-06-01] MEDS: IBUPROFEN 600 MG TABLET (FP) PO PRN ×2 (10:46→17:56)
[2022-06-01] MEDS ORDERED: ONDANSETRON *ODT* 4 MG TABLET SL PRN (13:37)
[2022-06-01] MEDS: NICOTINE 10 MG CARTRIDGE (INHALER) IH PRN (20:35)
[2022-06-01] MEDS: THIAMINE HCL 100 MG TABLET (FP) PO SCH (22:15)
[2022-06-01] MEDS: QUEtiapine FUMARATE 50 MG TABLET PO SCH (22:15)
[2022-06-01] MEDS: MELATONIN 5 MG TABLETS PO SCH (22:16)
[2022-06-02] MEDS: chlordiazePOXIDE HCL 10 MG CAPSULE PO SCH ×2 (07:11→17:41)
[2022-06-02] MEDS: methaDONE 80 MG, methaDONE 10 MG PO SCH (08:11)
[2022-06-02 09:36] VITALS: RESP 18
[2022-06-02] MEDS: ENALAPRIL MALEATE 10 MG TABLET PO SCH (10:23)
[2022-06-02] MEDS: DIVALPROEX SODIUM 250 MG TABLET E.C. PO SCH ×2 (10:23→22:37)
[2022-06-02] MEDS: AMOXICILLIN 500 MG CAPSULE (FP) PO SCH ×2 (10:23→22:37)
[2022-06-02] MEDS: PRENATAL VITAMINS W/ FOLIC ACID TABLET (FP) PO SCH (10:23)
[2022-06-02] MEDS: MUPIROCIN CA 2% TOPICAL CREAM 15 GM TUBE TP SCH ×2 (10:24→23:24)
[2022-06-02] MEDS: NICOTINE 10 MG CARTRIDGE (INHALER) IH PRN ×2 (10:25→22:37)
[2022-06-02] MEDS ORDERED: BISMUTH SUBSALICYLATE 524 MG/30 ML PO PRN (11:00)
[2022-06-02] MEDS ORDERED: SIMETHICONE 80 MG TAB.CHEW (FP) PO PRN (11:08)
[2022-06-02] MEDS: IBUPROFEN 600 MG TABLET (FP) PO PRN ×2 (13:01→22:39)
[2022-06-02] MEDS: MELATONIN 5 MG TABLETS PO SCH (22:37)
[2022-06-02] MEDS: THIAMINE HCL 100 MG TABLET (FP) PO SCH (22:37)
[2022-06-02] MEDS: QUEtiapine FUMARATE 50 MG TABLET PO SCH (22:37)
[2022-06-02] MEDS: METHOCARBAMOL 500 MG TABLET PO PRN (22:39)
[2022-06-03] MEDS ORDERED: chlordiazePOXIDE 5 MG CAPSULE ONE (03:57)
[2022-06-03] MEDS ORDERED: chlordiazePOXIDE HCL 10 MG CAPSULE PO ONE (05:00)
[2022-06-03] MEDS: methaDONE 80 MG, methaDONE 10 MG PO SCH (06:14)
[2022-06-03] MEDS: IBUPROFEN 400 MG TABLET (FP) PO PRN (06:17)
[2022-06-03 07:06] VITALS: BP 120/66; PULSE 75; TEMP 98.2
== END 2022-06-03 09:52 | disposition home or self-care (01) | DRG 773 ==
LOC: YASAS 16:25 → Y3N 05-29 10:36
PROVIDERS: ADMIT Allergy & Immunology; ATTEND Surgery
PROC: HZ2ZZZZ Detoxification Services for Substance Abuse Treatment (ICD-10-PCS; principal; 2022-05-29)
DX: F10.230 Alcohol dependence with withdrawal, uncomplicated (principal); F11.20 Opioid dependence, uncomplicated; F14.20 Cocaine dependence, uncomplicated; F12.20 Cannabis dependence, uncomplicated; F17.210 Nicotine dependence, cigarettes, uncomplicated; F31.81 Bipolar II disorder; F19.24 Other psychoactive substance dependence with psychoactive substance-induced mood disorder; F41.9 Anxiety disorder, unspecified; L03.114 Cellulitis of left upper limb; K04.7 Periapical abscess without sinus; M54.50 Low back pain, unspecified; G89.29 Other chronic pain; J45.20 Mild intermittent asthma, uncomplicated; R73.9 Hyperglycemia, unspecified; E66.01 Morbid (severe) obesity due to excess calories; Z68.41 Body mass index [BMI] 40.0-44.9, adult; Z88.8 Allergy status to other drugs, medicaments and biological substances; Z86.19 Personal history of other infectious and parasitic diseases; Z59.02 Unsheltered homelessness
CPT/HCPCS: 36415; 80053; 80164; 82962; 85027; 86780; 93005; 93010; C9803-CS; Q0162; U0003; U0005

== ENCOUNTER 2023-07-04 13:19 | Inpatient (IN) | payer OTHER ==
[2023-07-04 15:05] VITALS: BMI 49.2
[2023-07-04] MEDS ORDERED: POLYETHYLENE GLYCOL (HEALTHYLAX) 3350 17 GM PACKET PO PRN (15:48)
[2023-07-04] MEDS ORDERED: MAG HYDROX/AL HYDROX/SIMETH 30 ML UNIT-DOSE CUP PO PRN (15:48)
[2023-07-04] MEDS ORDERED: NALOXONE HCL (KLOXXADO) 8 MG SPRAY NS PRN (15:48)
[2023-07-04] MEDS ORDERED: LOPERAMIDE HCL 2 MG CAPSULE PO PRN (15:48)
[2023-07-04] MEDS ORDERED: ACETAMINOPHEN 325 MG TABLET (FP) PO PRN (15:48)
[2023-07-04] MEDS ORDERED: IBUPROFEN 600 MG TABLET (FP) PO PRN (15:48)
[2023-07-04] MEDS ORDERED: MAGNESIUM HYDROX 2400MG/30ML ORAL SUSPENSION 30 ML CUP PO PRN (15:48)
[2023-07-04] MEDS ORDERED: guaiFENesin 600 MG TABLET.ER (FP) PO PRN (15:48)
[2023-07-04] MEDS ORDERED: NICOTINE POLACRILEX 2 MG GUM BUC PRN (15:48)
[2023-07-04] MEDS ORDERED: P-EPHED 60MG/TRIPROLIDI 2.5MG TABLET PO PRN (15:48)
[2023-07-04] MEDS ORDERED: BENZOCAINE/MENTHOL (CHLORASEPTIC ) LOZENGE MM PRN (15:48)
[2023-07-04] MEDS ORDERED: METHOCARBAMOL 500 MG TABLET PO PRN (15:48)
[2023-07-04] MEDS ORDERED: BISMUTH SUBSALICYLATE 262 MG/15 ML BTL PO PRN (15:48)
[2023-07-04] MEDS ORDERED: IBUPROFEN 400 MG TABLET (FP) PO PRN (15:48)
[2023-07-04] MEDS ORDERED: ALBUTEROL SO4 HFA INHALER IH PRN (15:48)
[2023-07-04] MEDS ORDERED: BENZONATATE 200 MG CAPSULE PO PRN (15:48)
[2023-07-04] MEDS ORDERED: DICYCLOMINE HCL 10 MG CAPSULE PO PRN (15:48)
[2023-07-04] MEDS ORDERED: NALOXONE HCL 0.4 MG/ML VIAL IM PRN (15:48)
[2023-07-04] MEDS ORDERED: ONDANSETRON *ODT* 4 MG TABLET SL PRN (15:48)
[2023-07-04] MEDS ORDERED: MELATONIN 5 MG TABLETS PO PRN (22:00)
[2023-07-04] MEDS: THIAMINE HCL 100 MG TABLET (FP) PO SCH (22:26)
[2023-07-04] MEDS: hydrOXYzine PAMOATE 25 MG CAPSULE (FP) PO PRN (22:26)
[2023-07-05] MEDS: PRENATAL VITAMINS W/ FOLIC ACID TABLET (FP) PO SCH (10:17)
[2023-07-05] MEDS ORDERED: methaDONE HCL 10 MG TABLET PO SCH (11:15)
[2023-07-05] MEDS ORDERED: PNEUMOC 20-VAL CONJ-DIP CRM/PF 0.5 ML SYRINGE IM ONE (12:00)
[2023-07-05] MEDS ORDERED: QUEtiapine FUMARATE 100 MG TABLET (FP) PO SCH (22:00)
[2023-07-05] MEDS: THIAMINE HCL 100 MG TABLET (FP) PO SCH (22:37)
[2023-07-06 09:45] VITALS: BP 148/97; PULSE 63; RESP 17; TEMP 97.8
[2023-07-06] MEDS: PRENATAL VITAMINS W/ FOLIC ACID TABLET (FP) PO SCH (10:16)
[2023-07-06] MEDS: hydrOXYzine PAMOATE 25 MG CAPSULE (FP) PO PRN (10:19)
== END 2023-07-06 10:41 | disposition home or self-care (01) | DRG 773 ==
LOC: YASAS 13:19 → Y6N 16:56
PROVIDERS: ADMIT Allergy & Immunology; ATTEND Surgery
PROC: HZ2ZZZZ Detoxification Services for Substance Abuse Treatment (ICD-10-PCS; principal; 2023-07-04)
DX: F10.20 Alcohol dependence, uncomplicated (principal); F11.20 Opioid dependence, uncomplicated; F14.20 Cocaine dependence, uncomplicated; F12.20 Cannabis dependence, uncomplicated; F17.210 Nicotine dependence, cigarettes, uncomplicated; F31.9 Bipolar disorder, unspecified; F19.24 Other psychoactive substance dependence with psychoactive substance-induced mood disorder; G47.00 Insomnia, unspecified; Z56.0 Unemployment, unspecified; Z59.00 Homelessness unspecified; Z88.8 Allergy status to other drugs, medicaments and biological substances
CPT/HCPCS: 87635; 90677; 93005; 93010

== ENCOUNTER 2023-09-29 13:27 | Inpatient (IN) | payer OTHER ==
[2023-09-29 14:05] VITALS: BMI 55.5
[2023-09-29] MEDS ORDERED: DICYCLOMINE HCL 10 MG CAPSULE PO PRN (17:22)
[2023-09-29] MEDS ORDERED: guaiFENesin 600 MG TABLET.ER (FP) PO PRN (17:22)
[2023-09-29] MEDS ORDERED: NALOXONE HCL (KLOXXADO) 8 MG SPRAY NS PRN (17:22)
[2023-09-29] MEDS ORDERED: ONDANSETRON *ODT* 4 MG TABLET SL PRN (17:22)
[2023-09-29] MEDS ORDERED: NALOXONE HCL 0.4 MG/ML VIAL IM PRN (17:22)
[2023-09-29] MEDS ORDERED: MAG HYDROX/AL HYDROX/SIMETH 30 ML UNIT-DOSE CUP PO PRN (17:22)
[2023-09-29] MEDS ORDERED: BENZOCAINE/MENTHOL (CHLORASEPTIC ) LOZENGE MM PRN (17:22)
[2023-09-29] MEDS ORDERED: POLYETHYLENE GLYCOL (HEALTHYLAX) 3350 17 GM PACKET PO PRN (17:22)
[2023-09-29] MEDS ORDERED: MAGNESIUM HYDROX 2400MG/30ML ORAL SUSPENSION 30 ML CUP PO PRN (17:22)
[2023-09-29] MEDS ORDERED: LOPERAMIDE HCL 2 MG CAPSULE PO PRN (17:22)
[2023-09-29] MEDS ORDERED: BISMUTH SUBSALICYLATE 524 MG/30 ML PO PRN (17:22)
[2023-09-29] MEDS ORDERED: P-EPHED 60MG/TRIPROLIDI 2.5MG TABLET PO PRN (17:22)
[2023-09-29] MEDS ORDERED: BENZONATATE 200 MG CAPSULE PO PRN (17:22)
[2023-09-29] MEDS ORDERED: ACETAMINOPHEN 325 MG TABLET (FP) PO PRN (17:22)
[2023-09-29] MEDS: THIAMINE HCL 100 MG TABLET (FP) PO SCH (22:18)
[2023-09-29] MEDS: MELATONIN 5 MG TABLETS PO SCH (22:18)
[2023-09-29] MEDS: ALBUTEROL SO4 HFA INHALER IH PRN (22:19)
[2023-09-29] MEDS: METHOCARBAMOL 500 MG TABLET PO PRN (22:20)
[2023-09-29] MEDS: hydrOXYzine PAMOATE 25 MG CAPSULE (FP) PO PRN (22:20)
[2023-09-29] MEDS: NICOTINE POLACRILEX 2 MG GUM BUC PRN (22:33)
[2023-09-30] MEDS ORDERED: methaDONE HCL 10 MG TABLET PO SCH (09:45)
[2023-09-30] MEDS: PRENATAL VITAMINS W/ FOLIC ACID TABLET (FP) PO SCH (10:28)
[2023-09-30] MEDS: ENALAPRIL MALEATE 10 MG TABLET PO SCH (10:29)
[2023-09-30] MEDS: diazePAM 5 MG TABLET PO SCH (10:29)
[2023-09-30] MEDS: IBUPROFEN 600 MG TABLET (FP) PO PRN (11:18)
[2023-09-30] MEDS: GABAPENTIN 300 MG CAPSULE PO SCH (13:04)
[2023-09-30] MEDS: QUEtiapine FUMARATE 200 MG TABLET PO SCH (22:03)
[2023-09-30] MEDS: DIVALPROEX SODIUM 500 MG TABLET E.C. PO SCH (22:03)
[2023-10-01] MEDS: IBUPROFEN 400 MG TABLET (FP) PO PRN (10:23)
[2023-10-01] MEDS: PARoxetine HCL 20 MG TABLET PO SCH (10:23)
[2023-10-02] MEDS: diazePAM 5 MG TABLET PO SCH (05:33)
[2023-10-02] MEDS: diazePAM 5 MG TABLET PO PRN (10:51)
[2023-10-03] MEDS: diazePAM 5 MG TABLET PO SCH (06:02)
[2023-10-03] MEDS: DIVALPROEX SODIUM 500 MG TABLET E.C. PO SCH (22:33)
[2023-10-04] MEDS: diazePAM 5 MG TABLET PO ONE (05:34)
[2023-10-04 13:37] LABS: BASO % 0.4 % (0-2.0); HEMATOCRIT 43.3 % (35.4-49); HEMOGLOBIN 14.3 GM/dL (11.7-16.9); LYMPH % 28.3 % (8-40); MCH 29.1 pg (25.7-33.7); MEAN CELL VOLUME 88.1 fl (80-96); MEAN PLT VOLUME 7.5 fl (7.5-11.1); MONO % 10.6 % (3.8-10.2); NEUT % 56.7 % (42.8-82.8); PLATELET COUNT 475 10^3/uL (134-434); RBC 4.92 M/mm3 (4.00-5.60); WHITE BLOOD COUNT 8.1 K/mm3 (4.0-10.0)
[2023-10-04 13:44] LABS: CALCIUM 10.5 mg/dL (8.5-10.1)
[2023-10-04 13:45] LABS: BLOOD UREA NITROGEN 14.4 mg/dL (7-18)
[2023-10-04 13:48] LABS: CREATININE 0.6 mg/dL (0.55-1.3)
[2023-10-05 06:53] VITALS: BP 147/89; PULSE 87; RESP 16; TEMP 97.6
== END 2023-10-05 09:31 | disposition other institution (70) | DRG 773 ==
LOC: YASAS 13:27 → Y3N 17:49
PROVIDERS: ADMIT Allergy & Immunology; ATTEND Allergy & Immunology
PROC: HZ2ZZZZ Detoxification Services for Substance Abuse Treatment (ICD-10-PCS; principal; 2023-09-29)
DX: F11.23 Opioid dependence with withdrawal (principal); F10.230 Alcohol dependence with withdrawal, uncomplicated; F14.20 Cocaine dependence, uncomplicated; F12.20 Cannabis dependence, uncomplicated; F17.210 Nicotine dependence, cigarettes, uncomplicated; F19.24 Other psychoactive substance dependence with psychoactive substance-induced mood disorder; G47.00 Insomnia, unspecified; I10 Essential (primary) hypertension; Z88.8 Allergy status to other drugs, medicaments and biological substances; Z91.199 Patient's noncompliance with other medical treatment and regimen due to unspecified reason; Z56.0 Unemployment, unspecified; Z59.00 Homelessness unspecified
CPT/HCPCS: 36415; 80048; 85025; 87635; 93005; 93010

== ENCOUNTER 2023-10-31 10:39 | Inpatient (IN) | payer OTHER ==
[2023-10-31 11:04] VITALS: BMI 56.9
[2023-10-31] MEDS ORDERED: POLYETHYLENE GLYCOL (HEALTHYLAX) 3350 17 GM PACKET PO PRN (11:58)
[2023-10-31] MEDS ORDERED: LOPERAMIDE HCL 2 MG CAPSULE PO PRN (11:58)
[2023-10-31] MEDS ORDERED: BENZOCAINE/MENTHOL (CHLORASEPTIC ) LOZENGE MM PRN (11:58)
[2023-10-31] MEDS ORDERED: NALOXONE HCL (KLOXXADO) 8 MG SPRAY NS PRN (11:58)
[2023-10-31] MEDS ORDERED: BENZONATATE 200 MG CAPSULE PO PRN (11:58)
[2023-10-31] MEDS ORDERED: guaiFENesin 600 MG TABLET.ER (FP) PO PRN (11:58)
[2023-10-31] MEDS ORDERED: NICOTINE POLACRILEX 2 MG GUM BUC PRN (11:58)
[2023-10-31] MEDS ORDERED: NALOXONE HCL 0.4 MG/ML VIAL IM PRN (11:58)
[2023-10-31] MEDS ORDERED: hydrOXYzine PAMOATE 25 MG CAPSULE (FP) PO PRN (11:58)
[2023-10-31] MEDS: MELATONIN 5 MG TABLETS PO SCH (21:23)
[2023-10-31] MEDS: THIAMINE HCL 100 MG TABLET (FP) PO SCH (21:23)
[2023-10-31 23:40] LABS: EPI CELLS 10 /uL (0-25.1); HYALINE CASTS 2 /uL (0-3.1); PH,URINE 5.5 (5.0-8.0); URINE APPEARANCE TURBID; URINE BACTERIA 15 /uL (0-1359); URINE BILIRUBIN NEGATIVE (NEGATIVE); URINE COLOR DK YELLOW; URINE GLUCOSE (UA) NEGATIVE (NEGATIVE); URINE KETONE NEGATIVE (NEGATIVE); URINE LEUK ESTERASE NEGATIVE (NEGATIVE); URINE NITRITE NEGATIVE (NEGATIVE); URINE PROTEIN NEGATIVE (NEGATIVE); URINE RBC 9 /uL (0-23.9); URINE WBC 4 /uL (0-25.8)
[2023-11-01] MEDS: methaDONE HCL 40 MG DISPERSABLE TABLET PO SCH (08:53)
[2023-11-01] MEDS: PRENATAL VITAMINS W/ FOLIC ACID TABLET (FP) PO SCH (10:18)
[2023-11-01] MEDS: NICOTINE 14 MG/24 HOURS TOPICAL PATCH TD SCH (10:18)
[2023-11-01] MEDS: IBUPROFEN 600 MG TABLET (FP) PO PRN (10:20)
[2023-11-01] MEDS: FLU VACCINE (FLULAVAL) PF 60 MCG/0.5 ML SYRINGE 2023-2024 IM ONE (12:06)
[2023-11-01] MEDS: DIVALPROEX SODIUM 500 MG TABLET E.C. PO SCH (21:14)
[2023-11-01] MEDS: QUEtiapine FUMARATE 200 MG TABLET PO SCH (21:14)
[2023-11-01] MEDS ORDERED: QUEtiapine FUMARATE 200 MG TABLET PO SCH (22:00)
[2023-11-02] MEDS: PARoxetine HCL 20 MG TABLET PO SCH (10:13)
[2023-11-02] MEDS: IBUPROFEN 400 MG TABLET (FP) PO PRN (21:35)
[2023-11-03] MEDS ORDERED: ALBUTEROL SO4 HFA INHALER IH PRN (12:32)
[2023-11-03] MEDS: DIVALPROEX SODIUM 250 MG TABLET E.C. PO SCH (21:14)
[2023-11-03] MEDS: QUEtiapine FUMARATE 100 MG TABLET (FP) PO SCH (21:15)
[2023-11-04] MEDS: PARoxetine HCL 10 MG TABLET PO SCH (10:29)
[2023-11-04 12:17] LABS: HEMATOCRIT 41.9 % (35.4-49); MCH 29.4 pg (25.7-33.7); MCHC 33.5 g/dl (32.0-35.9); MEAN CELL VOLUME 87.9 fl (80-96); MEAN PLT VOLUME 7.6 fl (7.5-11.1); PLATELET COUNT 374 10^3/uL (134-434); RBC 4.77 M/mm3 (4.00-5.60); RDW 16.4 % (11.9-15.9); WHITE BLOOD COUNT 5.5 K/mm3 (4.0-10.0)
[2023-11-04 12:20] LABS: CHLORIDE 102 mmol/L (98-107); POTASSIUM 4.9 mmol/L (3.5-5.1); SODIUM 137 mmol/L (136-145)
[2023-11-04 12:35] LABS: ALBUMIN 3.2 g/dl (3.4-5.0); CALCIUM 9.6 mg/dL (8.5-10.1)
[2023-11-04 12:36] LABS: ANION GAP 7 mmol/L (4-13); BLOOD UREA NITROGEN 11.8 mg/dL (7-18); CO2 29 mmol/L (21-32); GLUCOSE,RANDOM 80 mg/dL (74-106)
[2023-11-04 12:38] LABS: CREATININE 0.5 mg/dL (0.55-1.3)
[2023-11-04 12:39] LABS: SGOT/AST 42 U/L (15-37)
[2023-11-04 12:40] LABS: BILIRUBIN,TOTAL 0.3 mg/dL (0.2-1); SGPT/ALT 71 U/L (13-61); TOT PROT 7.5 g/dl (6.4-8.2)
[2023-11-04 12:41] LABS: ALK PHOS 131 U/L (45-117)
[2023-11-04] MEDS: SUVOREXANT 10 MG TABLET PO PRN (21:14)
[2023-11-06] MEDS: QUEtiapine FUMARATE 200 MG TABLET PO SCH (21:11)
[2023-11-06] MEDS: hydrOXYzine PAMOATE 25 MG CAPSULE (FP) PO PRN (21:11)
[2023-11-07] MEDS: GABAPENTIN 300 MG CAPSULE PO SCH (13:41)
[2023-11-07] MEDS: LACTULOSE 20 GM/30 ML UDC (FOR ORAL USE ONLY) PO SCH (13:41)
[2023-11-09] MEDS ORDERED: methaDONE HCL 40 MG DISPERSABLE TABLET PO SCH (06:00)
[2023-11-09] MEDS: MAG HYDROX/AL HYDROX/SIMETH 30 ML UNIT-DOSE CUP PO PRN (15:41)
[2023-11-11] MEDS: LACTULOSE 20 GM/30 ML UDC (FOR ORAL USE ONLY) PO PRN (09:41)
[2023-11-13] MEDS ORDERED: NICOTINE 14 MG/24 HOURS TOPICAL PATCH TD PRN (13:44)
[2023-11-13] MEDS: GABAPENTIN 400 MG CAPSULE PO SCH (14:55)
[2023-11-13] MEDS: ACAMPROSATE CALCIUM 333 MG TABLET.DR PO SCH (14:55)
[2023-11-13] MEDS: BACITRACIN ZINC 15 GM TUBE TOPICAL OINTMENT TP SCH (15:14)
[2023-11-13] MEDS: BACITRACIN 0.9 GM PACKET TP SCH (15:29)
[2023-11-14] MEDS: QUEtiapine FUMARATE 100 MG TABLET (FP) PO SCH (21:18)
[2023-11-14] MEDS: traZODone HCL 50 MG TABLET (FP) PO SCH (21:18)
[2023-11-15] MEDS: ACETAMINOPHEN 325 MG TABLET (FP) PO PRN (09:47)
[2023-11-15] MEDS: MAGNESIUM HYDROX 2400MG/30ML ORAL SUSPENSION 30 ML CUP PO PRN (15:14)
[2023-11-27 06:43] VITALS: BP 138/88; PULSE 86; RESP 16; TEMP 97.1
== END 2023-11-27 09:19 | disposition home or self-care (01) | DRG 772 ==
LOC: YASAS 10:39 → Y3NR 15:01 → Y3E 15:26
PROVIDERS: ADMIT Allergy & Immunology; ATTEND Psychiatry & Neurology Pain Medicine
PROC: HZ42ZZZ Group Counseling for Substance Abuse Treatment, Cognitive-Behavioral (ICD-10-PCS; principal; 2023-10-31)
DX: F11.20 Opioid dependence, uncomplicated (principal); F10.20 Alcohol dependence, uncomplicated; F14.20 Cocaine dependence, uncomplicated; F13.20 Sedative, hypnotic or anxiolytic dependence, uncomplicated; F12.20 Cannabis dependence, uncomplicated; F17.210 Nicotine dependence, cigarettes, uncomplicated; F31.81 Bipolar II disorder; F19.282 Other psychoactive substance dependence with psychoactive substance-induced sleep disorder; F19.24 Other psychoactive substance dependence with psychoactive substance-induced mood disorder; F41.9 Anxiety disorder, unspecified; I10 Essential (primary) hypertension; J45.20 Mild intermittent asthma, uncomplicated; G62.9 Polyneuropathy, unspecified; G47.00 Insomnia, unspecified; Z88.8 Allergy status to other drugs, medicaments and biological substances
CPT/HCPCS: 36415; 80053; 80164; 80305; 80307; 81003; 85027; 86780; 87635; 93005; 93010